=== PATIENT | male | born 1960 | race Caucasian/White ===

== ENCOUNTER → 2018-06-06 | Outpatient (CLI) | payer OTHER ==
[~2018-06-06] VITALS: Ht 152.4 cm; Wt 68.0 kg
[~2018-06-06] MED LIST: ALLOPURINOL 10100 M1 PO; AMPHETAMINE SAL30 MG PO; ATENOLOL 50MG T50 MG PO; COLESTID1 GM PO; DIAZEPAM 10 MG10 M2 PO; LISINOPRIL10 MG PO; LOVAZA1000 MG PO; METFORMIN HCL500 MG PO; NEURONTIN 300300 M1 PO; NEURONTIN600 MG PO; OXYCODONE-ACET1 EAC2 PO; PERCOCET 10-321 EACH PO; SYNTHROID150 MCG PO; XANAX1 MG PO
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
[2018-06-06 13:23] VITALS: BP 163/104
--- NOTE | 2018-06-06 13:27 | NUR ---
Pain Clinic Assessment: 1. History of Osteoarthritis: Not Applicable History of Rheumatoid Arthritis: Not Applicable 2. Height: 5 ft. 9 in. 152.4 cm. Weight: 150.0 lb. oz. 68.040 kg. Patient's BMI: 29.3 3. Vital Signs: BP: 163/104 Pulse: 104 Resp: 16 Temp: 02 Sat: 98 ECG Mon: 4. Pain Intensity: 6 5. Fall Risk: Dizziness: N Needs help standing or walking: N Fallen in the last 3 months: N Fall risk comments: 6. Patient on Blood Thinner: None 7. History of Hypertension: Y 8. Opioid Therapy greater than 6 weeks: Y Opiate Contract Signed: 9. Risk Assessment Tool Provided: 10. Functional Assessment Tool: 91/712 11. Recreational Drug Use: Never Drug Type: Tobacco Use: Never Smoker Tobacco Type: Amount or Packs/day: How Many Years: Alcohol Use: No Frequency: Quant:
== END ==
LOC: PAIN 07:10
DX: G89.29 Other chronic pain (principal); M79.662 Pain in left lower leg; I10 Essential (primary) hypertension; Z89.612 Acquired absence of left leg above knee; Z88.2 Allergy status to sulfonamides; Z79.899 Other long term (current) drug therapy; Z79.891 Long term (current) use of opiate analgesic

== ENCOUNTER → 2018-07-10 | Outpatient (CLI) | payer OTHER ==
[~2018-07-10] VITALS: Ht 175.3 cm; Wt 68.9 kg
[2018-07-10 09:17] VITALS: BP 130/76
--- NOTE | 2018-07-10 09:34 | NUR ---
Pain Clinic Assessment: 1. History of Osteoarthritis: Not Applicable History of Rheumatoid Arthritis: Not Applicable 2. Height: 5 ft. 9 in. 175.3 cm. Weight: 152.0 lb. oz. 68.947 kg. Patient's BMI: 22.4 3. Vital Signs: BP: 130/76 Pulse: 93 Resp: 16 Temp: 02 Sat: 97 ECG Mon: 4. Pain Intensity: 5 5. Fall Risk: Dizziness: N Needs help standing or walking: Y Fallen in the last 3 months: N Fall risk comments: 6. Patient on Blood Thinner: None 7. History of Hypertension: Y 8. Opioid Therapy greater than 6 weeks: Y Opiate Contract Signed: 06/06/18 9. Risk Assessment Tool Provided: 3 LOW 10. Functional Assessment Tool: 11. Recreational Drug Use: Never Drug Type: Tobacco Use: Never Smoker Tobacco Type: Amount or Packs/day: How Many Years: Alcohol Use: No Frequency: Quant:
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
== END ==
LOC: PAIN 06:43
DX: Z76.0 Encounter for issue of repeat prescription (principal); T87.89 Other complications of amputation stump; G54.6 Phantom limb syndrome with pain; Z89.612 Acquired absence of left leg above knee; Z79.899 Other long term (current) drug therapy; Y83.8 Other surgical procedures as the cause of abnormal reaction of the patient, or of later complication, without mention of misadventure at the time of the procedure

== ENCOUNTER → 2018-08-08 | Outpatient (CLI) | payer OTHER, MEDICARE ==
[~2018-08-08] VITALS: Ht 175.3 cm; Wt 69.4 kg
[~2018-08-08] MED LIST changes: +WELLBUTRIN XL300 MG PO
[2018-08-08 09:35] VITALS: BP 145/104
--- NOTE | 2018-08-08 10:21 | NUR ---
Pain Clinic Assessment: 1. History of Osteoarthritis: Not Applicable History of Rheumatoid Arthritis: Not Applicable 2. Height: 5 ft. 9 in. 175.3 cm. Weight: 153.0 lb. oz. 69.400 kg. Patient's BMI: 22.6 3. Vital Signs: BP: 145/104 Pulse: 96 Resp: 18 Temp: 02 Sat: 97 ECG Mon: 4. Pain Intensity: 6 1/2-7 5. Fall Risk: Dizziness: N Needs help standing or walking: Y Fallen in the last 3 months: Y Fall risk comments: 6. Patient on Blood Thinner: None 7. History of Hypertension: Y 8. Opioid Therapy greater than 6 weeks: Y Opiate Contract Signed: 06/06/18 9. Risk Assessment Tool Provided: 3 LOW 10. Functional Assessment Tool: 11. Recreational Drug Use: Never Drug Type: Tobacco Use: Never Smoker Tobacco Type: Amount or Packs/day: How Many Years: Alcohol Use: No Frequency: Quant:
--- NOTE | 2018-08-09 08:02 | HPC ---
[facility] [place] [address] PAIN MANAGEMENT CONSULTATION Name: GUNNARTANISHA Room #: REG CL Carmen.#: [id number] Admission: 08/08/18 ������������������ Attend Phys: rGace Hines Discharge: ������������������ Date of : 56 Report #: [id number] THIS REPORT FOR: //name// CC: Grace Forbes DATE OF SERVICE: 08/08/2018 CHIEF COMPLAINT: Chronic intractable left lower extremity pain related to lkewq-czy-eusm amputation and phantom limb pain. HISTORY OF PRESENT ILLNESS: This is a pleasant 58-year-old gentleman who returns to the pain clinic for refill of his medications. He is more upbeat today telling me that he has a plan in place. He is going to start going to [facility], which Dr. Naheed Larry had recommended him go. He tells me they have lots of classes that he is interested in doing such as meditation and yoga and next week he is going to start his physical therapy to build up some of his strength. He tells me that he is going also to start a master's program in February, so he has goals in place to try and be better and stronger and decrease medicines before that time. He has decided that he will hold off on his spinal cord stimulator trial for now.He want to see if he is able to feel better through the techniques we discussed above and also trying to decrease his pain pills. He thinks that he should request 120 of his pain pills today, a decrease from his 180. The patient tells me his pain is a 6.5-7, mostly in his left stump and left buttock and the back of his left thigh. It is electrical in nature, sharp, stabbing and cramping feeling. It is worse with movement and wearing his prosthesis but medication and relaxation are helpful. ALLERGIES: SULFA. CURRENT LIST OF MEDICATIONS: Bupropion 300 mg daily, oxycodone 10/325 p.r.n., metformin 500 mg b.i.d., amphetamine salts 30 mg daily, Neurontin 1200 mg 3 times a day, Valium 5 mg b.i.d., allopurinol p.r.n., Xanax 0.5 mg p.r.n., atenolol 50 mg daily, lisinopril 10 mg daily, colestipol 1 gram 4 times a day and Synthroid 150 mcg a day. PQRS: The patient has multiple joint arthritis. Denies any rheumatoid arthritis. Height is 5 feet 9 inches, weight is 153, BMI is 22. Vital signs: Blood pressure 145/104, pulse is 96, respirations 18, oxygen sat is 97%. Pain score is 6.5-7. Fall risk, denies dizziness. Does need help walking. Does use a wheelchair today. He has fallen in the last 3 months. The patient is not on any blood thinners. He does take medicine for hypertension. Opioid therapy is greater than 6 weeks; therefore, an opioid signed contract is on the chart. His [address] [address] PAIN MANAGEMENT CONSULTATION Name: GUNNARTANISHA Room #: REG BARAK Elizabeth#: [id number] Admission: 08/08/18 ������������������ Attend Phys: Grace Hines Discharge: ������������������ Date of : 56 Report #: [id number] risk assessment tool is low. His functional assessment is 40/70. Recreational drug use, he denies. He is not a smoker and does not drink alcohol. We did check the prescription monitoring system. The patient is filling appropriately for his medications. We will check a drug screen on this patient at the next visit. PHYSICAL EXAMINATION GENERAL: This is a pleasant 58-year-old gentleman who appears his stated age. Placing his pain score today at 6.5-7. He is in a wheelchair today, more upbeat than last visit. HEENT: Normocephalic, atraumatic. Extraocular eye muscles are intact. Mucous membranes are moist. MUSCULOSKELETAL: Lower extremity reveals good strength in his right leg. He has a left balzz-llw-fmuj amputation, which is very sensitive to touch. Complaints of electrical sensation from his left buttock radiating down to his stump. IMPRESSION: 1. Chronic intractable left lower extremity pain with wockv-acj-xmxo amputation. 2. Phantom limb pain of the left leg. 3. Severe neuropathic stump pain. We reviewed the fact that opiate medications are being used to provide analgesia adequate to support activities of daily living, not attempting to achieve a specific pain score on the 0-10 Visual Analog Scale. The current opiate medications are providing sufficient analgesia to allow the patient to participate in activities of daily living. The patient is not exhibiting any aberrant behavior suggestive of drug diversion. The patient is not having any adverse reactions to medications. The patient is not suffering from daytime somnolence or mental acuity changes. The patient is managing opiate-induced constipation with appropriate xhcc-oef-zxvltor agents and dietary considerations. The patient was counseled on concern for caution with operating a motor vehicle while using opiate medications. A physical exam was performed and the patient's functional status was evaluated. All patients with back pain were advised against the bed rest greater than 4 days and were advised to return to normal activities. Pain score assessment was noted and the treatment plan was reviewed with the patient. All current medications, both prescribed and OTC were reviewed and reconciled on the electronic medical record. Tobacco screening was accomplished and smoking cessation was advised when indicated. BMI was noted and diet/exercise modification was recommended for all patients following outside normal parameters. [facility] [address] [place] [address] PAIN MANAGEMENT CONSULTATION Name: TANISHA MAHER Room #: REG CL M.R.#: [id number] Admission: 08/08/18 ������������������ Attend Phys: Grace Hines Discharge: ������������������ Date of : 56 Report #: [id number] I reviewed with the patient today their responsibilities to safeguard prescription medications, reviewed their responsibility to utilize medications only as prescribed by the physician. They are to seek and receive pain medications only from 1 physician group ( [facility]). They are to use 1 pharmacy and keep the clinic informed if they change pharmacies. Their responsibilities include making followup visits in a timely fashion and to avoid abrupt discontinuation of medication usage. Their responsibilities further include bringing their medications (bottles from the pharmacy with residual pills) to the visit for possible confirmation of pill counts and the patient understands it is their responsibility to submit to random drug screens to ensure both that the medications prescribed are present, and that no other controlled substances are present. All prescriptions provided today were generated electronically. PLAN: 1. We discussed treatment options with the patient today. The patient is going to start going to [facility] and interested in their meditation and yoga classes. We did give him the brochure of all the classes for the next 2 months. 2. The patient is going to start physical therapy trying to build his upper extremity strength, getting ready to start his master's classes in February and he knows he needs to build his endurance. 3. The patient is requesting to decrease his Percocet use. He thinks that he needs to eventually wean off these medicines. His current allotment is 180. The patient requested 120 and then thought he could go to 60 the next month. We did talk about dependence and addiction of opioids. I believe he does have dependence on these and we explained decreasing slowly to prevent withdrawal symptoms. The patient was unaware that he would experience those and realizes that he does need to go slowly. We talked about decreasing 1 pill a month or even half a pill at a time. Script was given today for oxycodone 10/325 one p.o. q. 4 hours, #180 for 1 month. We will see how he is in 1 month's time period since he is starting physical therapy, which may increase some of his pain, but if he is able to decrease slightly, we will decrease his prescription at the next visit. According to the prescription monitoring system and the CDC guidelines, his morphine mEq is 90 MME per day. The patient denies problems with constipation or overmedication feeling. 4. The patient tells me that he wishes to put his spinal cord stimulator on hold right now to see how these other therapies are working. 5. The patient is seen today with Dr. Monroy who was present for part of this discussion and collaborated care. ��������������������������������������������� <ELECTRONICALLY SIGNED> ���������������������������������������� By: Grace Hines ��������������������������������������������� 08/09/18 [id number] Grace Hines /rogerio
== END ==
LOC: PAIN 06:54
DX: M25.562 Pain in left knee (principal); G89.29 Other chronic pain; M79.605 Pain in left leg

== ENCOUNTER → 2018-09-06 | Outpatient (CLI) | payer OTHER, MEDICARE ==
[~2018-09-06] VITALS: Ht 172.7 cm; Wt 65.8 kg
[2018-09-06 08:17] VITALS: BP 124/82
--- NOTE | 2018-09-06 08:22 | NUR ---
Pain Clinic Assessment: 1. History of Osteoarthritis: Not Applicable History of Rheumatoid Arthritis: Not Applicable 2. Height: 5 ft. 8 in. 172.7 cm. Weight: 145.0 lb. oz. 65.772 kg. Patient's BMI: 22.1 3. Vital Signs: BP: 124/82 Pulse: 59 Resp: 16 Temp: 02 Sat: 98 ECG Mon: 4. Pain Intensity: 6-7 5. Fall Risk: Dizziness: N Needs help standing or walking: N Fallen in the last 3 months: N Fall risk comments: 6. Patient on Blood Thinner: None 7. History of Hypertension: Y 8. Opioid Therapy greater than 6 weeks: Y Opiate Contract Signed: 06/06/18 9. Risk Assessment Tool Provided: 3 LOW 10. Functional Assessment Tool: 11. Recreational Drug Use: Never Drug Type: Tobacco Use: Never Smoker Tobacco Type: Amount or Packs/day: How Many Years: Alcohol Use: No Frequency: Quant:
--- NOTE | 2018-09-10 07:46 | HPC ---
[facility] [address] [place] [address] PAIN MANAGEMENT CONSULTATION Name: TANISHA MAHER Room #: REG BARAK Elizabeth#: [id number] Admission: 09/06/18 ������������������ Attend Phys: Garce Hines Discharge: ������������������ Date of : 56 Report #: [id number] THIS REPORT FOR: //name// CC: Grace Diaz DATE OF SERVICE: 09/06/2018 CHIEF COMPLAINT: Chronic intractable left lower extremity pain related to aevon-rqf-oyrx amputation and phantom limb pain. HISTORY OF PRESENT ILLNESS: This is a very pleasant 58-year-old gentleman who returns to the clinic today for refill of his medications that he uses to treat his chronic intractable left lower extremity pain. He reports that his pain score is a 6-7. He has been able to decrease his medications to #5 pills a day. He tells me that he did experience some sweating and irritability, almost flu-like symptoms when he was trying to go down. He was surprised that he had felt that way since he thought he could decrease quicker on his medications than he has been able to, which we did explain to him at his last visit. The patient tells me he realizes now that he will be needing to taper off his medications more slowly and understands that the body still needs some medications to help control his pain. The patient tells me he did go to [facility] and started weekly meditation sessions there and is getting ready to start some other classes there as well. His physical therapy is on hold currently because he was not able to tolerate 3 times a week when they are trying to get his new prosthetic limb and able to have him walk again, so he is going to his orthopedic doctor to get a new order for physical therapy 2 times a week. The patient tells me his pain is worse with movement wearing his prosthesis. The medications and relaxing techniques are helpful and it is a constant, burning, aching pain of 7/10 today. ALLERGIES: SULFA. CURRENT MEDICATIONS: Oxycodone 10/325 p.r.n., Wellbutrin 300 mg daily, Lovaza, Glucophage, amphetamine salts, Neurontin, diazepam, allopurinol, Xanax, atenolol, lisinopril, Colestid and Synthroid. PQRS: 1. The patient has multiple joint arthritis. He denies any rheumatoid arthritis. 2. Height is 5 feet 8 inches, weight is 145, BMI is 22. 3. Vital signs: Blood pressure 124/82, pulse is 59, respirations 16, oxygen sat 98%. [place] [address] PAIN MANAGEMENT CONSULTATION Name: TANISHA MAHER Room #: REG BARAK Elizabeth#: [id number] Admission: 09/06/18 ������������������ Attend Phys: Grace Hines Discharge: ������������������ Date of : 56 Report #: [id number] 4. Pain score is 6-7. 5. Denies dizziness, does not need help walking or standing, has not fallen in the last 3 months. 6. The patient is not on any blood thinners. He does take medication for hypertension. 7. Opioid therapy is greater than 6 weeks; therefore, an opioid signed contract is on the chart. Risk assessment tool is low. Functional assessment is 48/70. 8. Recreational drug use, he denies. He is not a smoker and does not drink alcohol. According to the prescription monitoring system, the patient is filling appropriately for his medications and is due for those today. We will check a drug screen on the patient in the next visit. PHYSICAL EXAMINATION GENERAL: This is a pleasant 58-year-old gentleman, rating his pain score today at 6-7/10. He is alert and orientated. He is in a wheelchair today. HEENT: Normocephalic, atraumatic. Extraocular eye muscles are intact. Mucous membranes are moist. MUSCULOSKELETAL: Lower extremities reveal good strength in his right leg. He has peyhl-mes-bjyv amputation in the left leg. He is not wearing his prosthetic today. IMPRESSION: 1. Chronic intractable left lower extremity pain with aormc-hyh-nhdt amputation. 2. Phantom limb pain of the left leg. 3. Severe neuropathic stump pain. We reviewed the fact that opiate medications are being used to provide analgesia adequate to support activities of daily living, not attempting to achieve a specific pain score on the 0-10 Visual Analog Scale. The current opiate medications are providing sufficient analgesia to allow the patient to participate in activities of daily living. The patient is not exhibiting any aberrant behavior suggestive of drug diversion. The patient is not having any adverse reactions to medications. The patient is not suffering from daytime somnolence or mental acuity changes. The patient is managing opiate-induced constipation with appropriate gzuv-xqu-inmwfyl agents and dietary considerations. The patient was counseled on concern for caution with operating a motor vehicle while using opiate medications. A physical exam was performed and the patient's functional status was evaluated. All patients with back pain were advised against the bed rest greater than 4 days and were advised to return to normal activities. Pain score assessment was noted and the treatment plan was reviewed with the patient. All current medications, both prescribed and OTC were reviewed and reconciled on the [address] [address] PAIN MANAGEMENT CONSULTATION Name: TANISHA MAHER Room #: REG BARAK Elizabeth#: [id number] Admission: 09/06/18 ������������������ Attend Phys: Grace BROWN Flora Discharge: ������������������ Date of : 56 Report #: [id number] electronic medical record. Tobacco screening was accomplished and smoking cessation was advised when indicated. BMI was noted and diet/exercise modification was recommended for all patients following outside normal parameters. I reviewed with the patient today their responsibilities to safeguard prescription medications, reviewed their responsibility to utilize medications only as prescribed by the physician. They are to seek and receive pain medications only from 1 physician group ( [facility]). They are to use 1 pharmacy and keep the clinic informed if they change pharmacies. Their responsibilities include making followup visits in a timely fashion and to avoid abrupt discontinuation of medication usage. Their responsibilities further include bringing their medications (bottles from the pharmacy with residual pills) to the visit for possible confirmation of pill counts and the patient understands it is their responsibility to submit to random drug screens to ensure both that the medications prescribed are present, and that no other controlled substances are present. All prescriptions provided today were generated electronically. PLAN: 1. We discussed treatment options again today. The patient understands that he needs to decrease his medications more slowly than he thought; therefore, he is requesting 5 pills a day, which is a decrease from his 6 that he was taking last month. This will place him at 75 morphine milligram equivalents. I explained to the patient that we may need to keep him at this 150 for a couple of months while his body adjusts to this lower medication. He verbalizes understanding. He will come back in a month and we will see how he is doing. If need to, we will decrease him to 120 or keep him at 150 for another month. I did explain to him that he may always require some medications, but hopefully at a lower dose. He verbalizes understanding. 2. The patient is attending [facility] classes and is looking forward to attending some more starting in September and October. 3. The patient denies any constipation or overmedication from his medications. 4. The patient made an appointment for 1 month. 5. The patient is seen in collaboration today with Dr. Marcelo Alba. ��������������������������������������������� <ELECTRONICALLY SIGNED> ���������������������������������������� By: Grace Hines ��������������������������������������������� 09/10/18 0746 [id number] Grace Hines /nt
== END ==
LOC: PAIN 06:39
DX: M25.562 Pain in left knee (principal); M79.605 Pain in left leg

== ENCOUNTER → 2018-09-30 | Outpatient (CLI) | payer OTHER, MEDICARE ==
[~2018-09-30] VITALS: Ht 172.7 cm; Wt 71.8 kg
[2018-09-30 13:04] VITALS: BP 162/87
--- NOTE | 2018-09-30 13:25 | NUR ---
Pain Clinic Assessment: 1. History of Osteoarthritis: Not Applicable History of Rheumatoid Arthritis: Not Applicable 2. Height: 5 ft. 8 in. 172.7 cm. Weight: 158.4 lb. oz. 71.850 kg. Patient's BMI: 24.1 3. Vital Signs: BP: 162/87 Pulse: 84 Resp: 16 Temp: 02 Sat: 97 ECG Mon: 4. Pain Intensity: 6 5. Fall Risk: Dizziness: N Needs help standing or walking: Y Fallen in the last 3 months: N Fall risk comments: 6. Patient on Blood Thinner: None 7. History of Hypertension: Y 8. Opioid Therapy greater than 6 weeks: Y Opiate Contract Signed: 06/06/18 9. Risk Assessment Tool Provided: 3 LOW 10. Functional Assessment Tool: 11. Recreational Drug Use: Never Drug Type: Tobacco Use: Never Smoker Tobacco Type: Amount or Packs/day: How Many Years: Alcohol Use: No Frequency: Quant:
--- NOTE | 2018-10-01 08:37 | HPC ---
[facility] [address] [place] [address] PAIN MANAGEMENT CONSULTATION Name: TANISHA MAHER Room #: REG [facility] Glenn#: [id number] Admission: 09/30/18 Attend Phys: Grace Hines Discharge: Date of : 56 Report #: [id number] THIS REPORT FOR: //name// CC: Grace Valdes DATE OF SERVICE: 09/30/2018 CHIEF COMPLAINT: Chronic intractable left lower extremity pain related to ubfsx-zur-txqr amputation and phantom limb pain. HISTORY OF PRESENT ILLNESS: This is a pleasant 58-year-old gentleman who returns to the pain clinic today for refill of his medications. He tells me that it had been a rough month, he was trying to decrease his oxycodone and he was doing quite well. Then, he had a bout of gout flare up. He tells me he was in bed for 4 days with that before the symptoms slowly started to resolve and his pain was quite bad during that time, but mostly in his left foot. He explains to me that he did not run out of his oxycodone, though he was tempted to take more pills, he did not. He wishes to continue on his current dose of 5 pills a day for the next month and then tried to taper to 120 tablets a month at his next visit. The patient rates his pain at a 6/10 today, again mostly in his left stump, left buttock. It is a constant, burning, aching pain, electrical worse with movement and wearing his prosthesis. He has not started his physical therapy, though he is going by there again today. This is the same situation as last month, he had not set up a time for his physical therapy yet. He denies any problems with constipation or daytime sleepiness from his medications. ALLERGIES: SULFA. CURRENT LIST OF MEDICINES: Oxycodone 10/325 up to 5 times a day, Wellbutrin 300 mg, Lovaza, metformin 500 mg, amphetamine salts 30 mg, gabapentin 1200 mg 3 times a day, diazepam 5 mg b.i.d., allopurinol 100 mg, Xanax 1 mg p.r.n., atenolol 50 mg, lisinopril 10 mg, Colestid and Synthroid 150 mcg. PQRS: 1. He has multiple joint arthritis and denies any rheumatoid arthritis. 2. Height is 5 feet 8 inches, weight is 158, BMI is 24. 3. Vital signs 162/87, pulse is 84, respirations 16, oxygen sat is 97. 4. Pain score 6/10. 5. Denies dizziness, does need help walking and standing. He is in a wheelchair, is not wearing his prosthesis today. He has not fallen in the last 3 months. 6. The patient is not on any blood thinners. He does take medicine for hypertension, which is elevated again today. [address] [address] PAIN MANAGEMENT CONSULTATION Name: GUNNARTANISHA Newman Room #: [id number] Admission: 09/30/18 Attend Phys: Grace Hines Discharge: Date of : 56 Report #: [id number] 7. Opiate therapy is greater than 6 weeks; therefore, an opioid signed contract is on the chart. 8. His risk assessment is low. Functional assessment is 40/70. 9. Recreational drug use, he denies. He is not a smoker and does not drink alcohol. According to the prescription monitoring system, the patient is due for his medications in a few days. We will check a random drug screen on the patient as well. PHYSICAL EXAMINATION: GENERAL: This is alert and orientated 58-year-old gentleman who appears his stated age. He is in a wheelchair today, rating his pain score at 6/10. HEENT: Normocephalic, atraumatic. Extraocular eye muscles are intact. Mucous membranes are moist. MUSCULOSKELETAL: He has an hrsya-ibn-ilwy amputation of the left leg. He is not wearing his prosthetic device today. He is in a wheelchair. His lower extremities revealed good strength in his right leg. IMPRESSION: 1. Chronic intractable left lower extremity pain with tabaz-xlx-ysps amputation. 2. Phantom limb pain of the left leg. 3. Severe neuropathic stump pain. 4. Complex medical management under terms of written opioid agreement. We reviewed the fact that opiate medications are being used to provide analgesia adequate to support activities of daily living, not attempting to achieve a specific pain score on the 0-10 Visual Analog Scale. The current opiate medications are providing sufficient analgesia to allow the patient to participate in activities of daily living. The patient is not exhibiting any aberrant behavior suggestive of drug diversion. The patient is not having any adverse reactions to medications. The patient is not suffering from daytime somnolence or mental acuity changes. The patient is managing opiate-induced constipation with appropriate vetr-cnh-dsfagoq agents and dietary considerations. The patient was counseled on concern for caution with operating a motor vehicle while using opiate medications. A physical exam was performed and the patient's functional status was evaluated. All patients with back pain were advised against the bed rest greater than 4 days and were advised to return to normal activities. Pain score assessment was noted and the treatment plan was reviewed with the patient. All current medications, both prescribed and OTC were reviewed and reconciled on the electronic medical record. Tobacco screening was accomplished and smoking cessation was advised when indicated. BMI was noted and diet/exercise modification was recommended for all patients following outside normal [facility] [address] [address] PAIN MANAGEMENT CONSULTATION Name: TANISHA MAHER Room #: REG CL M..#: [id number] Admission: 09/30/18 Attend Phys: Grace Hines Discharge: Date of : 56 Report #: [id number] parameters. I reviewed with the patient today their responsibilities to safeguard prescription medications, reviewed their responsibility to utilize medications only as prescribed by the physician. They are to seek and receive pain medications only from 1 physician group ( [facility]). They are to use 1 pharmacy and keep the clinic informed if they change pharmacies. Their responsibilities include making followup visits in a timely fashion and to avoid abrupt discontinuation of medication usage. Their responsibilities further include bringing their medications (bottles from the pharmacy with residual pills) to the visit for possible confirmation of pill counts and the patient understands it is their responsibility to submit to random drug screens to ensure both that the medications prescribed are present, and that no other controlled substances are present. All prescriptions provided today were generated electronically. PLAN: 1. We discussed treatment options with the patient today. The patient still would like to continue to decrease his medication, though he is wanting to wait an additional month. His current morphine mEq is 75 per day. The patient is seen on a monthly basis, so we will continue his oxycodone 10/325, #150 for one additional month and next month, we will try to taper him to 120 per his request. 2. We did talk about goals and increasing his activity regarding starting his physical therapy and his goal for starting school in February, I believe it is good for chronic pain patients to have goals to not be in the house and have the pain consume them. The patient is trying to be active in all of these ways and he explains to us that he is feeling better about himself because of it. 3. We did collect a urine specimen for random drug screen today. 4. Dr. Davon Monroy did see the patient as well today and collaborated care. The patient will follow up in 1 month and call for an appointment. <ELECTRONICALLY SIGNED> By: Grace Hines 10/01/18 0837 [id number] Grace Hines /nt
== END ==
LOC: PAIN 06:59
DX: G89.29 Other chronic pain (principal); M79.605 Pain in left leg; M25.562 Pain in left knee; Z79.891 Long term (current) use of opiate analgesic

== ENCOUNTER → 2018-10-31 | Outpatient (CLI) | payer OTHER, MEDICARE ==
[~2018-10-31] VITALS: Ht 172.7 cm; Wt 65.8 kg
[~2018-10-31] MED LIST changes: +ZANAFLEX4 MG PO
[2018-10-31 10:10] VITALS: BP 132/77
--- NOTE | 2018-10-31 10:40 | NUR ---
Pain Clinic Assessment: 1. History of Osteoarthritis: Not Applicable History of Rheumatoid Arthritis: Not Applicable 2. Height: 5 ft. 8 in. 172.7 cm. Weight: 145.0 lb. oz. 65.772 kg. Patient's BMI: 22.1 3. Vital Signs: BP: 132/77 Pulse: 82 Resp: 16 Temp: 02 Sat: 98 ECG Mon: 4. Pain Intensity: 8 5. Fall Risk: Dizziness: Y Needs help standing or walking: Y Fallen in the last 3 months: N Fall risk comments: 6. Patient on Blood Thinner: None 7. History of Hypertension: Y 8. Opioid Therapy greater than 6 weeks: Y Opiate Contract Signed: 06/06/18 9. Risk Assessment Tool Provided: 3 LOW 10. Functional Assessment Tool: 11. Recreational Drug Use: Never Drug Type: Tobacco Use: Never Smoker Tobacco Type: Amount or Packs/day: How Many Years: Alcohol Use: No Frequency: Quant:
--- NOTE | 2018-11-05 09:15 | HPC ---
[facility] [address] [place] [address] PAIN MANAGEMENT CONSULTATION Name: TANISHA MAHER Room #: REG [facility] Glenn#: [id number] Admission: 10/31/18 ������������������ Attend Phys: Grace Hines Discharge: ������������������ Date of : 56 Report #: [id number] THIS REPORT FOR: //name// CC: Grace Mendez MD DATE OF SERVICE: 10/31/2018 CHIEF COMPLAINT: Chronic intractable left lower extremity pain related to gzjay-lnv-evng amputation and phantom limb pain. HISTORY OF PRESENT ILLNESS: This is a pleasant 58-year-old gentleman who returns to the pain clinic for a refill of his medications. Today, he is rating his pain score at 8/10. He tells me that he has been out of his medications for 5 days because he was having increased pain since he has started physical therapy. He now has some back pain as well as left sciatica pain that is radiating down his left leg to his stump, occasional pain in his right lower leg. He is also complaining of some neck pain. It is a burning, sharp, stabbing pain, electrical in nature "resonating feeling" an 8/10. He said movement makes it worse, wearing his prosthesis which he has not ever worn since he has been seeing me and activity. He tells me he did have some sweating episodes, but otherwise did not experience any withdrawal since out of his medication for 5 days. The patient tells me he does have scripts for a cervical, thoracic and lumbar MRI that he is going to schedule at [facility] and then he is going to see Kelsie, the nurse practitioner, at Dr. Salazar's office on 11/19 to determine if he needs further treatments. ALLERGIES: SULFA. CURRENT LIST OF MEDICATIONS: Oxycodone 10/325, Wellbutrin 300 mg daily, Lovaza 400 mg daily, metformin 500 mg b.i.d., amphetamine 300 mg 2 daily, gabapentin 1200 mg 3 times a day, diazepam p.r.n., allopurinol 100 mg daily, Xanax 2 mg as needed, atenolol 50 mg daily, lisinopril 10 mg daily, Colestid 1 gram 4 times a day, Lodine and levothyroxine 150 mcg daily. PQRS: 1. He has multiple joint arthritis and denies any rheumatoid arthritis. 2. Height is 5 feet 8 inches, weight is 145, BMI is 22. 3. Vital signs 132/77, pulses 82, respirations 16, oxygen sat 98. 4. Pain score is 8/10. 5. Complains of dizziness, does need help walking. He is in a wheelchair today, has not fallen in the last [address] [address] PAIN MANAGEMENT CONSULTATION Name: TANISHA MAHER Room #: REG [facility] Glenn#: [id number] Admission: 10/31/18 ������������������ Attend Phys: Grace Hines Discharge: ������������������ Date of : 56 Report #: [id number] 6. The patient is not on any blood thinners, but does have medicine for hypertension. 7. Opiate therapy is greater than 6 weeks; therefore, an opioid signed contract is on the chart. Risk assessment tool is low. Functional assessment is 48/70. 8. Recreational drug use, he denies. He is not a smoker and does not drink alcohol. According to the prescription monitoring system, the patient is here filling appropriately for his medications. According to his last drug screen, there was no oxycodone in his system, though he tells us that he was out for a couple of days prior to that appointment. The rest of his medications were appropriate for his screen. PHYSICAL EXAMINATION: GENERAL: This is alert and orientated 58-year-old somewhat depressed gentleman, in fact tearful throughout some of her visit. He is in a wheelchair, rating his pain score at 8/10 today. HEENT: Normocephalic, atraumatic. Extraocular eye muscles are intact. Mucous membranes are moist. MUSCULOSKELETAL: He is in a wheelchair today, not wearing his prosthetic device on his left leg, which is an gzunc-bia-ltqn amputee. Complains of pain in the lumbar spine, radiating into the outer aspect of his left buttock into his hip and leg following the L4-L5 and L5-S1 dermatomal distribution. Occasional slight pain in the right foot. His right lower extremity reveals good strength. IMPRESSION: 1. Chronic intractable left lower extremity pain with cizrv-swn-fxdz amputation. 2. Lumbar radiculopathy following the L4-L5 and L5-S1 dermatomal distribution. 3. Phantom limb pain in the left leg. 4. Severe neuropathic stump pain. 5. Complex medical management under terms of written opioid agreement. 6. Situational depression. We reviewed the fact that opiate medications are being used to provide analgesia adequate to support activities of daily living, not attempting to achieve a specific pain score on the 0-10 Visual Analog Scale. The current opiate medications are providing sufficient analgesia to allow the patient to participate in activities of daily living. The patient is not exhibiting any aberrant behavior suggestive of drug diversion. The patient is not having any adverse reactions to medications. The patient is not suffering from daytime somnolence or mental acuity changes. The patient is managing opiate-induced constipation with appropriate gnza-etj-sahwgjq agents and dietary considerations. The patient was counseled on concern for caution with operating a motor vehicle while using opiate medications. [facility] [address] [place] [address] PAIN MANAGEMENT CONSULTATION Name: TANISHA MAHER [id number] Admission: 10/31/18 ������������������ Attend Phys: Grace Hines Discharge: ������������������ Date of : 56 Report #: [id number] A physical exam was performed and the patient's functional status was evaluated. All patients with back pain were advised against the bed rest greater than 4 days and were advised to return to normal activities. Pain score assessment was noted and the treatment plan was reviewed with the patient. All current medications, both prescribed and OTC were reviewed and reconciled on the electronic medical record. Tobacco screening was accomplished and smoking cessation was advised when indicated. BMI was noted and diet/exercise modification was recommended for all patients following outside normal parameters. I reviewed with the patient today their responsibilities to safeguard prescription medications, reviewed their responsibility to utilize medications only as prescribed by the physician. They are to seek and receive pain medications only from 1 physician group ([facility]). They are to use 1 pharmacy and keep the clinic informed if they change pharmacies. Their responsibilities include making followup visits in a timely fashion and to avoid abrupt discontinuation of medication usage. Their responsibilities further include bringing their medications (bottles from the pharmacy with residual pills) to the visit for possible confirmation of pill counts and the patient understands it is their responsibility to submit to random drug screens to ensure both that the medications prescribed are present, and that no other controlled substances are present. All prescriptions provided today were generated electronically. PLAN: 1. We discussed treatment options with the patient today. The patient tells me that he has run out of his medications because he was in significantly more pain since starting his physical therapy. He requested an injection type medication to have at home in case of an emergency if he is having severe pain bouts. I explained to the patient that we allow him his oxycodone 5 tablets of 10/325 a day. He is encouraged to use those medications when he has significant pain. We also talked about adjunct medications. He does take gabapentin and the anti-inflammatory Lodine and an occasional muscle relaxant of diazepam. I did talk to him about altering his muscle relaxant to tizanidine 4 mg, the patient may take a half to one tablet or 1-2 tablets as needed b.i.d. for increased muscle spasms in his lumbar spine. 2. I encouraged the patient to set up his MRIs as soon as he is able and then return to our clinic to see Dr. Davon Monroy who could possibly give him a lumbar epidural steroid injection or transforaminal steroid injection or possibly a sacroiliac joint depending on where his pain is located at that time since he has been having pain in all these various areas that these injections would be beneficial. The patient has had injections a long time ago and he is willing to try this. He will schedule his MRI once he leaves here today and then call for an appointment with Dr. Davon Monroy. 3. The patient did request an increase in his opioids. I explained to the patient that we are trying to taper his medications, not increase them. We are [address] [address] PAIN MANAGEMENT CONSULTATION Name: GUNNARTANISHA Newman Room #: REG [facility] Elizabeth#: [id number] Admission: 10/31/18 ������������������ Attend Phys: Grace Hines Discharge: ������������������ Date of : 56 Report #: [id number] offering him injections as well as muscle relaxants. I encouraged him to try those first and continue with his 5 oxycodone 10/325 per day. This does place him at 75 morphine milliequivalents according to the CDC guidelines. 4. The patient was also given a list of amputee support groups. He has been attending [facility] for meditation and finding those scripts very beneficial, but they do not offer any amputee support groups. 5. The patient and discharged to home. The patient is seen today in collaboration with Dr. Davon Monroy. ��������������������������������������������� <ELECTRONICALLY SIGNED> ���������������������������������������� By: Grace Hines ��������������������������������������������� 11/05/18 0915 [id number] Grace Hines /rogerio
== END ==
LOC: PAIN 06:47
DX: M79.662 Pain in left lower leg (principal); M54.16 Radiculopathy, lumbar region; Z88.2 Allergy status to sulfonamides; Z79.899 Other long term (current) drug therapy; Z79.84 Long term (current) use of oral hypoglycemic drugs; Z79.891 Long term (current) use of opiate analgesic

== ENCOUNTER → 2018-12-02 | Outpatient (CLI) | payer OTHER, MEDICARE ==
[~2018-12-02] VITALS: Ht 172.7 cm; Wt 74.1 kg
[~2018-12-02] MED LIST changes: -LISINOPRIL10 MG PO; +LISINOPRIL20 MG PO; +ZANAFLEX4 M2 PO
[2018-12-02 09:19] VITALS: BP 187/113
--- NOTE | 2018-12-02 09:48 | NUR ---
Pain Clinic Assessment: 1. History of Osteoarthritis: NECK History of Rheumatoid Arthritis: Not Applicable 2. Height: 5 ft. 8 in. 172.7 cm. Weight: 163.4 lb. oz. 74.118 kg. Patient's BMI: 24.9 3. Vital Signs: BP: 187/113 Pulse: 82 Resp: 14 Temp: 02 Sat: 100 ECG Mon: 4. Pain Intensity: 7 5. Fall Risk: Dizziness: N Needs help standing or walking: Y Fallen in the last 3 months: Y Fall risk comments: 6. Patient on Blood Thinner: None 7. History of Hypertension: Y 8. Opioid Therapy greater than 6 weeks: Y Opiate Contract Signed: 06/06/18 9. Risk Assessment Tool Provided: 3 LOW 10. Functional Assessment Tool: 11. Recreational Drug Use: Never Drug Type: Tobacco Use: Never Smoker Tobacco Type: Amount or Packs/day: How Many Years: Alcohol Use: No Frequency: Quant:
--- NOTE | 2018-12-02 15:02 | HPC ---
[facility] [place] [address] PAIN MANAGEMENT CONSULTATION Name: TANISHA MAHER Room #: REG Stephon Elizabeth#: [id number] Admission: 12/02/18 Attend Phys: Grace Hines Discharge: Date of : 56 Report #: [id number] THIS REPORT FOR: //name// CC: Grace ALTAMIRANO MD DATE OF SERVICE: 12/02/2018 CHIEF COMPLAINT: Chronic intractable left lower extremity pain related to cuesn-jco-edhp amputation and phantom limb pain. HISTORY OF PRESENT ILLNESS: This is a 58-year-old gentleman who returns to the pain clinic today for refill of his medications. He reports a pain score of 7/10. He is currently out of his medication today since he needed to move his appointment due to a last week. He reports his pain is mostly in his neck as well as his stump of his left leg. It is sharp, dull pressure as well as phantom limb pain. He feels that the medications are helpful when he is taking them as well as relaxation and massage, but his pain is exacerbated without his medications and stress. He denies any problems with constipation or daytime sleepiness. He feels that the tizanidine that we recently started him on was beneficial and helping some of his spasms in his neck and making him more relaxed. The patient has reported he has not seen Dr. Salazar. He does have an appointment now on 12/14/2018 to see a nurse practitioner. He has also not had his cervical, thoracic and lumbar MRIs performed for us to review at this visit. ALLERGIES: SULFA. CURRENT LIST OF MEDICATIONS: Tizanidine 4 mg p.r.n., oxycodone 10/325 five times a day, Wellbutrin 300 mg daily, Lovaza 4000 mg daily, Glucophage 500 mg b.i.d., amphetamine salts 30 mg daily, gabapentin 1200 mg t.i.d., Valium 5 mg p.r.n., allopurinol 100 mg p.r.n., atenolol 50 mg daily, lisinopril 10 mg daily, Colestid q.i.d. and Synthroid 150 mcg daily. PQRS: 1. He has multiple joint osteoarthritis. Denies any rheumatoid arthritis. 2. Height is 5 feet 8 inches, weight is 163, and BMI is 24. 3. Vital signs 187/113, pulse is 82, respirations 14, oxygen sat is 100. 4. Pain score 7/10. 5. Denies dizziness. Does need help walking and standing. Has fallen in the last 3 months. 6. The patient is not on any blood thinners, [place] [address] PAIN MANAGEMENT CONSULTATION Name: TANISHA MAHER Room #: REG BARAK Elizabeth#: [id number] Admission: 12/02/18 Attend Phys: Grace Hines Discharge: Date of : 56 Report #: [id number] hypertension. 7. Opioid therapy is greater than 6 weeks; therefore, an opioid signed contract is on the chart. His risk assessment tool is low. Functional assessment is 48/70. 8. Recreational drug use, he denies. He is not a smoker and does not drink alcohol. According to the prescription monitoring system, he is filling appropriately for his medications. There is a drug screen on the chart as well. PHYSICAL EXAMINATION: GENERAL: This is alert and orientated 58-year-old gentleman who appears slightly depressed. He is at a wheelchair, rating his pain score at 7/10 today. HEENT: Normocephalic, atraumatic. Extraocular eye muscles are intact. Mucous membranes are moist. MUSCULOSKELETAL: The patient is not wearing his prosthetic device on his left leg. He is in a wheelchair today. He complains of neck discomfort that radiates into his shoulders. He has tenderness on his left buttock that radiates into his left leg following the L4-L5 dermatomal distribution. IMPRESSION: 1. Chronic intractable left lower extremity pain with efzsj-bht-qxmg amputation. 2. Lumbar radiculopathy following the L4-L5 dermatomal distribution. 3. Phantom limb pain of the left leg. 4. Severe neuropathic stump pain. 5. Neck pain. 6. Situational depression. 7. Complex medical management under terms of written opioid agreement. We reviewed the fact that opiate medications are being used to provide analgesia adequate to support activities of daily living, not attempting to achieve a specific pain score on the 0-10 Visual Analog Scale. The current opiate medications are providing sufficient analgesia to allow the patient to participate in activities of daily living. The patient is not exhibiting any aberrant behavior suggestive of drug diversion. The patient is not having any adverse reactions to medications. The patient is not suffering from daytime somnolence or mental acuity changes. The patient is managing opiate-induced constipation with appropriate ftfw-hbq-rusnsar agents and dietary considerations. The patient was counseled on concern for caution with operating a motor vehicle while using opiate medications. A physical exam was performed and the patient's functional status was evaluated. All patients with back pain were advised against the bed rest greater than 4 days and were advised to return to normal activities. Pain score assessment was noted and the treatment plan was reviewed with the patient. All current [address] [address] PAIN MANAGEMENT CONSULTATION Name: TANISHA MAHER Room #: REG [facility]#: [id number] Admission: 12/02/18 Attend Phys: Grace Hines Discharge: Date of : 56 Report #: [id number] medications, both prescribed and OTC were reviewed and reconciled on the electronic medical record. Tobacco screening was accomplished and smoking cessation was advised when indicated. BMI was noted and diet/exercise modification was recommended for all patients following outside normal parameters. I reviewed with the patient today their responsibilities to safeguard prescription medications, reviewed their responsibility to utilize medications only as prescribed by the physician. They are to seek and receive pain medications only from 1 physician group ( [facility]). They are to use 1 pharmacy and keep the clinic informed if they change pharmacies. Their responsibilities include making followup visits in a timely fashion and to avoid abrupt discontinuation of medication usage. Their responsibilities further include bringing their medications (bottles from the pharmacy with residual pills) to the visit for possible confirmation of pill counts and the patient understands it is their responsibility to submit to random drug screens to ensure both that the medications prescribed are present, and that no other controlled substances are present. All prescriptions provided today were generated electronically. PLAN: 1. We discussed treatment options with the patient today. The patient has not fulfilled any of the directions we discussed last time as far as physical therapy and seeing Dr. Salazar and having his MRIs completed. The patient tells me that physical therapy made his neck pain worse and did have to stop that for now. He is scheduled for his MRIs this week and to see a nurse practitioner at Dr. Salazar's office on 12/14/2018. I encouraged the patient to follow up with all of these appointments before he sees us at the next visit and have his MRI reports with him, so we can go over those as well. 2. The patient finds that tizanidine beneficial in helping with some of his muscle relaxants. We will continue this medication, #60 with 1 refill of 4 mg tablets. 3. The patient given oxycodone , #150. This is a 30-day supply. I instructed the patient to try to make his medication last and arrived on time for his appointment, so he does not go through withdrawal. The patient verbalizes understanding. 4. He is currently at 75 morphine mEq. Based on the CDC guidelines of his oxycodone, it is our plan to sometimes decrease these again, but currently, we will remain at this level with no increases. 5. The patient is seen in collaboration today with Dr. Davon Monroy. <ELECTRONICALLY SIGNED> By: Grace Hines 12/02/18 1502 1040 [id number] Grace Hines /rogerio
== END ==
LOC: PAIN 11-28 14:29
DX: M54.16 Radiculopathy, lumbar region (principal); M54.2 Cervicalgia; F43.21 Adjustment disorder with depressed mood; Z79.891 Long term (current) use of opiate analgesic; Z88.2 Allergy status to sulfonamides; Z79.899 Other long term (current) drug therapy

== ENCOUNTER → 2018-12-30 | Outpatient (CLI) | payer OTHER, MEDICARE ==
[~2018-12-30] VITALS: Ht 172.7 cm; Wt 72.8 kg
[2018-12-30 09:03] VITALS: BP 153/96
--- NOTE | 2018-12-30 09:24 | NUR ---
Pain Clinic Assessment: 1. History of Osteoarthritis: NECK History of Rheumatoid Arthritis: DENIES 2. Height: 5 ft. 8 in. 172.7 cm. Weight: 160.6 lb. oz. 72.848 kg. Patient's BMI: 24.4 3. Vital Signs: BP: 153/96 Pulse: 77 Resp: 16 Temp: 02 Sat: 100 ECG Mon: 4. Pain Intensity: 7 5. Fall Risk: Dizziness: N Needs help standing or walking: Y Fallen in the last 3 months: Y Fall risk comments: 6. Patient on Blood Thinner: None 7. History of Hypertension: Y 8. Opioid Therapy greater than 6 weeks: Y Opiate Contract Signed: 06/06/18 9. Risk Assessment Tool Provided: 3 LOW 10. Functional Assessment Tool: 11. Recreational Drug Use: Never Drug Type: Tobacco Use: Never Smoker Tobacco Type: Amount or Packs/day: How Many Years: Alcohol Use: No Frequency: Quant:
--- NOTE | 2018-12-31 08:39 | HPC ---
[facility] [address] [place] [address] PAIN MANAGEMENT CONSULTATION Name: TANISHA MAHER Room #: REG [facility] Glenn#: [id number] Admission: 12/30/18 Attend Phys: Grace Hines Discharge: Date of : 56 Report #: [id number] THIS REPORT FOR: //name// CC: Grace Monroy MD DATE OF SERVICE: 12/30/2018 CHIEF COMPLAINT: Chronic intractable low back, lower extremity pain related to nhznx-phq-ohtb amputation and phantom limb pain. HISTORY OF PRESENT ILLNESS: This is a 58-year-old gentleman who returns to the pain clinic today for ongoing left stump pain that is associated with phantom limb as well as ongoing neck and right shoulder pain. He reports his pain score is 7/10 today. He has been out of his oxycodone for 4 days. He denies any signs and symptoms of withdrawal. The patient reports that his son tried to commit suicide a few weeks ago; therefore, he started taking some extra pain pills to deal with his emotional pain and stress that is why he is out early. He did not call to request any early refills. The patient also states he did not have his MRIs performed, so therefore he did not see Dr. Salazar. His son's suicide attempt came at the same time of his appointments, so he has rescheduled those for Sunday afternoon to see Dr. Salazar regarding his ongoing neck pain. The patient also reports that he has been seeing [facility]. He is doing their meditation. He has programs, he is thinking about attending a pain program through [facility]. He has found these very beneficial when he goes and attends these programs. ALLERGIES: SULFA. CURRENT LIST OF MEDICATIONS: Oxycodone 10/325 up to 5 times a day, tizanidine 4 mg t.i.d. p.r.n., bupropion 300 mg daily, omega 3, metformin 500 mg b.i.d., dextroamphetamine 2 tablets a day, gabapentin 1200 mg t.i.d., Valium p.r.n., allopurinol 100 mg daily, atenolol 50 mg at bedtime, lisinopril 20 mg daily, Colestid daily and Synthroid 150 mcg daily. PQRS: 1. The patient has multiple joint osteoarthritis. Denies any rheumatoid arthritis. 2. Height is 5 feet 8 inches, weight is 160, BMI is 24. 3. Vital signs 153/96, pulse is 77, respirations 16, oxygen sat [place] [address] [address] PAIN MANAGEMENT CONSULTATION Name: TANISHA MAHER Room #: REG [facility] Glenn#: [id number] Admission: 12/30/18 Attend Phys: Grace Hines Discharge: Date of : 56 Report #: [id number] 4. Pain score is 7/10. 5. Denies dizziness, he need help walking. He is in a wheelchair today. He has not fallen in the last 3 months. 6. The patient is not on blood thinners, but does take medicine for hypertension. 7. Opioid therapy is greater than 6 weeks; therefore, an opioid signed contract is on the chart. Risk assessment tool is low. Functional assessment is 48/70. 8. Recreational drug use, he denies. He is not a smoker and does not drink alcohol. According to the prescription monitoring system, he is filling appropriately for his medicines, though he is out early again today. He did not call and request any early refills. He is due to fill his medicines. There is also a recent drug screen on the chart that we will recheck at his next visit. PHYSICAL EXAMINATION: GENERAL: This is alert and orientated 58-year-old who appears his stated age. He is in a wheelchair, rating his pain score at 7/10 today. HEENT: Normocephalic, atraumatic. Extraocular eye muscles are intact. Mucous membranes are moist. NECK: Complains of discomfort that radiates into his right shoulder, pain increases with active range of motion of flexion and extension. Does not radiate into his arms presently. MUSCULOSKELETAL: He has tenderness in his left buttock that radiates into his left leg following the L4-L5 dermatomal distribution. He is not wearing his prosthetic device on his left amputation. He is in a wheelchair presently today. IMPRESSION: 1. Chronic intractable left lower extremity pain with lainh-acz-dhow amputation. 2. Lumbar radiculopathy following the L4-L5 dermatomal distribution. 3. Phantom limb pain of the left leg with neuropathic stump pain. 4. Cervical pain with radiculopathy. 5. Situational depression. 6. Complex medical management under terms of written opioid agreement. PLAN: 1. We discussed our treatment plan again today. The patient has got another month without seeing Dr. Salazar or having his MRI performed. He reports his son had a suicide attempt that did cause him some emotional depression and stress that did cause his pain to increase and therefore he did cancel his appointments with Dr. Salazar but has been scheduled for this next week. I encouraged the patient as well as the nurse that pain medications are used to help treat pain, not emotional stress and depression. Patient verbalized understanding that. He will try to take his medications more appropriately as [address] [place] [address] PAIN MANAGEMENT CONSULTATION Name: TANISHA MAHER Room #: REG [facility] Glenn#: [id number] Admission: 12/30/18 Attend Phys: Grace Hines Discharge: Date of : 56 Report #: [id number] scheduled, though he did not request an early refill. 2. Scripts given for oxycodone 10/325 up to 5 tablets a day, #150 for one month only. No tizanidine scripts needed today. 3. Encouraged the patient to continue at [facility] possibly increasing his meditation classes to the next level since he finds those very basic, also encouraged him to seek out other classes that may deal with exercise since he has stopped his physical therapy or other outlets to deal with his pain and stress such as creative writing, cooking, other avenues for distraction for him. The patient verbalizes understanding. They are going to go by [facility] today to see the next month offerings. 4. The patient encouraged to keep his appointment with Dr. Salazar and send them the reports. The patient is to follow up with Dr. Davon Monroy in 1 month. 5. The patient is seen in collaboration with Dr. Marcelo Alba today. <ELECTRONICALLY SIGNED> By: Grace Hines 12/31/18 0839 1002 1411 Grace Hines /nt
== END ==
LOC: PAIN 06:53
DX: M54.16 Radiculopathy, lumbar region (principal); M54.12 Radiculopathy, cervical region; F32.9 Major depressive disorder, single episode, unspecified; G89.29 Other chronic pain; Z79.891 Long term (current) use of opiate analgesic; M79.669 Pain in unspecified lower leg

== ENCOUNTER → 2019-01-27 | Outpatient (CLI) | payer OTHER, MEDICARE ==
[~2019-01-27] VITALS: Ht 172.7 cm; Wt 72.1 kg
--- NOTE | ~2019-01-27 | HPC ---
[facility] [place] [address] PAIN MANAGEMENT CONSULTATION Name: TANISHA MAHER Room #: REG CL Carmen.#: [id number] Admission: 01/27/19 Attend Phys: Davon Monroy MD Discharge: Date of : 56 Report #: [id number] THIS REPORT FOR: //name// CC: Ahsan Monroy DATE OF SERVICE: 01/27/2019 The patient returns to pain clinic today with his . He has chronic pain syndrome. He complains of a variety of pains today. He complains of post-amputation pain, which is both a combination of stump pain as well as phantom limb pain. He is on medication for this condition. He complains mostly today about his neck. He complains of cervicalgia that radiates up into the occiput. It is worse on the left. He has difficulty with rotational movements. Pain can be severe enough to interfere with sleep. He has been on longstanding opioids well before he came to our clinic. We have been providing him with oxycodone 10/325 under terms of written opioid agreement. He originally came to us on 60 mg of oxycodone per day. We have reduced that to 50. I am concerned about polypharmacy. There are significant polypharmacy interactions that may impede his ability to feel better. MEDICATIONS: Include oxycodone, tizanidine, bupropion. He says he has stopped his dextroamphetamine, but he remains on gabapentin, allopurinol, alprazolam, atenolol, lisinopril, Colestid and levothyroxine. ALLERGIES: SULFA. PQRS REVIEW: 1. History of spondylosis of the neck. 2. BMI 24.2. 3. Blood pressure 152/99, heart rate 73. 4. Pain intensity 7-8/10. 5. He is a fall risk and needs help with transfers. He has above-knee amputation on the left. 6. He is on no blood thinning medications. 7. History of hypertension. 8. He is on an opioid agreement signed originally in our clinic on 06/06/2018 and he completed an opioid risk tool at that time, scoring 3, which is considered low risk for addiction. 9. Functional assessment score, which is 48/70. 10. Denies use of recreational drugs. Denies use of tobacco, denies use of alcohol. [facility] [address] [place] [address] PAIN MANAGEMENT CONSULTATION Name: TANISHA MAHER Room #: REG CLStephon Elizabeth#: [id number] Admission: 01/27/19 Attend Phys: Davon Monroy MD Discharge: Date of : 56 Report #: [id number] PHYSICAL EXAMINATION: He is mildly depressed. Vital signs as noted. Examination of the neck reveals diminished range of motion, particularly in extension, lateral rotation and lateral tilt to the left. Examination of the neck reveals no masses, but there is tenderness mostly along the left side of the neck along the spinous processes and then extending down into the area of trapezius, extending out along the spine of the scapula and he also has pain that radiates down the back. Minimal pain is noted on the right. All pain seems to be on the left. Deep tendon reflexes are diminished, biceps, triceps and brachioradialis, but present. 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 Strength is adequate. IMPRESSION: 1. Chronic pain syndrome with multiple pain generators including phantom limb pain and cervicalgia with spondylosis. 2. Polypharmacy. Medication management under terms of written agreement. RECOMMENDATIONS: 1. Discussed the importance of mobility. I have referred him to Dr. Al for chiropractic soft tissue myofascial release. 2. Twenty minutes of counseling regarding medication use. He needs to avoid overmedicating with opioids. They will be less effective in that role. I also discussed concerns about polypharmacy and I have recommended that he discuss with his other providers a tapering of some of his other centrally acting drugs. I think he will feel better and his pain will be under better control. Discussed the importance of mobility throughout his neck. 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 I think he actually needs just the opposite. He needs to get gentle range of motion sustained and that should help with the neck pain, which is primarily myofascial. Prescription was renewed for him. He is seen on a monthly basis. Urine drug screen was performed. He admitted to me today that he had taken all of his oxycodone within 20 days. If this was intended to convince me that he needed more medication, it did quite the opposite. I have discussed with him using his medicines more carefully and cautiously. We discussed how to use his medications in anticipation of activities. We talked about using smaller amounts of medication on good days. Discussed side effects of which he denies any. We talked very openly about the opioid crisis and the importance of safeguarding all medications and following our recommendations. I have checked his prescription drug monitoring program information and there are no unexpected entries. [facility] [address] [place] [address] PAIN MANAGEMENT CONSULTATION Name: TANISHA MAHER Room #: REG [facility] MinervaCharles.#: [id number] Admission: 01/27/19 Attend Phys: Davon Monroy MD Discharge: Date of : 56 Report #: [id number] A followup visit is scheduled for him in 1 month with Grace Hines APRN. We will see him at that time as well. By: 1250 [id number] Davon Monroy MD /nt
[2019-01-27 09:09] VITALS: BP 152/99
--- NOTE | 2019-01-27 09:32 | NUR ---
Pain Clinic Assessment: 1. History of Osteoarthritis: NECK History of Rheumatoid Arthritis: Not Applicable 2. Height: 5 ft. 8 in. 172.7 cm. Weight: 159.0 lb. oz. 72.122 kg. Patient's BMI: 24.2 3. Vital Signs: BP: 152/99 Pulse: 73 Resp: 14 Temp: 02 Sat: 100 ECG Mon: 4. Pain Intensity: 7.5 5. Fall Risk: Dizziness: Y Needs help standing or walking: Y Fallen in the last 3 months: Y Fall risk comments: 6. Patient on Blood Thinner: None 7. History of Hypertension: Y 8. Opioid Therapy greater than 6 weeks: Y Opiate Contract Signed: 06/06/18 9. Risk Assessment Tool Provided: 3 LOW 10. Functional Assessment Tool: 11. Recreational Drug Use: Never Drug Type: Tobacco Use: Never Smoker Tobacco Type: Amount or Packs/day: How Many Years: Alcohol Use: No Frequency: Quant:
== END ==
LOC: PAIN 06:55
DX: G89.29 Other chronic pain (principal); M54.2 Cervicalgia; M47.812 Spondylosis without myelopathy or radiculopathy, cervical region; Z79.899 Other long term (current) drug therapy

== ENCOUNTER → 2019-02-24 | Outpatient (CLI) | payer OTHER, MEDICARE ==
[~2019-02-24] VITALS: Ht 172.7 cm; Wt 71.0 kg
[~2019-02-24] MED LIST changes: +CARVEDILOL25 MG PO
[2019-02-24 08:15] VITALS: BP 136/93
--- NOTE | 2019-02-24 08:26 | NUR ---
Pain Clinic Assessment: 1. History of Osteoarthritis: NECK History of Rheumatoid Arthritis: DENIES 2. Height: 5 ft. 8 in. 172.7 cm. Weight: 156.6 lb. oz. 71.033 kg. Patient's BMI: 23.8 3. Vital Signs: BP: 136/93 Pulse: 81 Resp: 14 Temp: 02 Sat: 100 ECG Mon: 4. Pain Intensity: 7 5. Fall Risk: Dizziness: N Needs help standing or walking: Y Fallen in the last 3 months: Y Fall risk comments: 6. Patient on Blood Thinner: None 7. History of Hypertension: Y 8. Opioid Therapy greater than 6 weeks: Y Opiate Contract Signed: 06/06/18 9. Risk Assessment Tool Provided: 3 LOW 10. Functional Assessment Tool: 11. Recreational Drug Use: Never Drug Type: Tobacco Use: Never Smoker Tobacco Type: Amount or Packs/day: How Many Years: Alcohol Use: No Frequency: Quant:
--- NOTE | 2019-02-25 08:12 | HPC ---
[facility] [address] [place] [address] PAIN MANAGEMENT CONSULTATION Name: TANISHA MAHER Room #: REG [facility] Glenn#: [id number] Admission: 02/24/19 Attend Phys: Grace Hines Discharge: Date of : 56 Report #: [id number] THIS REPORT FOR: //name// CC: Grace Monroy MD DATE OF SERVICE: 02/24/2019 CHIEF COMPLAINT: Chronic intractable low back pain, left lower extremity pain related to [id number] amputation. HISTORY OF PRESENT ILLNESS: This is a 58-year-old gentleman who returns to the clinic with his complaining of pain in his neck, mid back and phantom limb pain. Today, he reports a pain score of 7/10. He does report when he is taking his pain pills, it is a 5/10. He reports that he took his last two oxycodone yesterday stating he made his medications last until his appointment today and had not run out ahead of time. The patient does report that yesterday he had increased pain in his mid back. He has been seeing a chiropractor and that that was very beneficial and will make another appointment for this week to see if that can help reduce some of his thoracic pain. He reports he is also going to have an MRI of his mid back. Dr. Salazar's office had ordered this with contrast. He is having this performed later in the month. The patient states that any activity does exacerbate his pain. He feels that the medications are beneficial when he takes 6 tablets a day of his oxycodone. He is here requesting refills today. ALLERGIES: SULFA. CURRENT LIST OF MEDICATIONS: Carvedilol 25 mg b.i.d., tizanidine 4 mg 2 a day, oxycodone 10/325 p.r.n., buprenorphine 300 mg, Lovaza, Glucophage, amphetamine salts, gabapentin, allopurinol, alprazolam, atenolol, lisinopril, Colestid and Synthroid. PATIENT'S PQRS: 1. He has a history of spondylosis in his neck. Denies rheumatoid arthritis. 2. Height is 5 feet 8 inches, weight is 156, BMI is 23. 3. Vital signs 136/93, pulse is 81, respirations 14, and oxygen sat is 100. 4. Pain score is 5-7/10. 5. Denies dizziness. Does need help walking. He is in a wheelchair and has fallen out of bed in the last 3 months, did not seek medical attention as far as the Emergency Room. 6. The patient is not on any blood thinners, but does take medicine for hypertension. [address] [address] PAIN MANAGEMENT CONSULTATION Name: TANISHA MAHER Room #: REG [facility] Elizabeth#: [id number] Admission: 02/24/19 Attend Phys: Grace Hines Discharge: Date of : 56 Report #: [id number] 7. Opiate therapy is greater than 6 weeks; therefore, an opioid signed contract is on the chart. Risk assessment tool is low. Functional assessment is 48/70. 8. Recreational drug use, he denies. He is not a smoker and does not drink alcohol. According to the prescription monitoring system, the patient is due to fill his medications this week. There is a recent drug screen on the chart that does show negative for his oxycodone, which he reported he had been out for several days. It also does not show positive for his Adderall that is positive for his alprazolam. According to the CDC guidelines, his morphine milliequivalent per day is 75 mEq. PHYSICAL EXAMINATION: GENERAL: This is an alert and orientated, slightly depressed 58-year-old gentleman who appears his stated age, placing his pain score from 5-7 today. HEENT: Normocephalic, atraumatic. Extraocular eye muscles are intact. NECK: He has decreased range of motion, especially in the lateral tilt to the left and rotation. There is tenderness along the spinal processes. He has tenderness along his thoracic spine as well. MUSCULOSKELETAL: His upper extremity strength judged to be 5/5 in all major muscle groups. He has tenderness in his lumbar spine. He is not wearing his prosthetic device on his left amputation. He is in a wheelchair presently today. IMPRESSION: 1. Chronic pain syndrome with multiple pain generators including phantom limb pain. 2. Cervicalgia with spondylosis. 3. Polypharmacy medication management under terms of written opioid agreement. We reviewed the fact that opiate medications are being used to provide analgesia adequate to support activities of daily living, not attempting to achieve a specific pain score on the 0-10 Visual Analog Scale. The current opiate medications are providing sufficient analgesia to allow the patient to participate in activities of daily living. The patient is not exhibiting any aberrant behavior suggestive of drug diversion. The patient is not having any adverse reactions to medications. The patient is not suffering from daytime somnolence or mental acuity changes. The patient is managing opiate-induced constipation with appropriate kaju-quu-aoczagt agents and dietary considerations. The patient was counseled on concern for caution with operating a motor vehicle while using opiate medications. A physical exam was performed and the patient's functional status was evaluated. All patients with back pain were advised against the bed rest greater than 4 days and were advised to return to normal activities. Pain score assessment was noted and the treatment plan was reviewed with the patient. All current [facility] [address] [place] [address] PAIN MANAGEMENT CONSULTATION Name: TANISHA MAHER Room #: REG [facility] Elizabeth#: [id number] Admission: 02/24/19 Attend Phys: Grace Hines Discharge: Date of : 56 Report #: [id number] medications, both prescribed and OTC were reviewed and reconciled on the electronic medical record. Tobacco screening was accomplished and smoking cessation was advised when indicated. BMI was noted and diet/exercise modification was recommended for all patients following outside normal parameters. I reviewed with the patient today their responsibilities to safeguard prescription medications, reviewed their responsibility to utilize medications only as prescribed by the physician. They are to seek and receive pain medications only from 1 physician group ( [facility]). They are to use 1 pharmacy and keep the clinic informed if they change pharmacies. Their responsibilities include making followup visits in a timely fashion and to avoid abrupt discontinuation of medication usage. Their responsibilities further include bringing their medications (bottles from the pharmacy with residual pills) to the visit for possible confirmation of pill counts and the patient understands it is their responsibility to submit to random drug screens to ensure both that the medications prescribed are present, and that no other controlled substances are present. All prescriptions provided today were generated electronically. PLAN: 1. We discussed treatment options with the patient today. I encouraged the patient to go back to Dr. Stein for chiropractic myofascial release. He did obtain one session and thought it was beneficial. I encouraged him to go call today for another appointment and encouraged him to follow through for several appointments to see if that helps decrease his pain. 2. We will refill his oxycodone 10/325 up to 5 tablets a day, quantity 150. I explained to the patient that he is only to take 5 tablets max a day. His 150 is for a 30-day supply. The patient was pleased with himself that he had not run out prior to today's visit. I explained to him that this has been 28 days. He still had 2 days left of his 30-day supply medicine. I encouraged the patient to be mindful of taking 5 a day max and try to utilize other therapies as far as stretching, massage, heat, ice to decrease some of his pain issues as opposed to taking a pain pill. He verbalizes understanding. 3. The patient is not in need of tizanidine today. He has plenty of refills. 4. We explained to the patient to have his MRI sent to us that he is having done later in the month on his thoracic spine as well as Dr. Salazar. 5. The patient is seen today in collaboration with Dr. Davon Monroy and Dr. Ahsan Jean. The patient will be seen in 1 month. <ELECTRONICALLY SIGNED> By: Grace Hines 02/25/19 0812 0929 [id number] Grace Hines /rogerio
== END ==
LOC: PAIN 06:50
DX: M47.812 Spondylosis without myelopathy or radiculopathy, cervical region (principal); G89.4 Chronic pain syndrome; M79.662 Pain in left lower leg; Z89.612 Acquired absence of left leg above knee; Z79.891 Long term (current) use of opiate analgesic; Z79.899 Other long term (current) drug therapy; Z88.2 Allergy status to sulfonamides

== ENCOUNTER → 2019-04-17 | Outpatient (CLI) | payer OTHER, MEDICARE ==
[~2019-04-17] VITALS: Ht 172.7 cm; Wt 70.8 kg
[~2019-04-17] MED LIST changes: +DIAZEPAM 10 MG10 M1 PO; +NARCAN4 MG NARES
[2019-04-17 09:23] VITALS: BP 103/77
--- NOTE | 2019-04-17 09:37 | NUR ---
Pain Clinic Assessment: 1. History of Osteoarthritis: NECK History of Rheumatoid Arthritis: DENIES 2. Height: 5 ft. 8 in. 172.7 cm. Weight: 156.0 lb. oz. 70.761 kg. Patient's BMI: 23.7 3. Vital Signs: BP: 103/77 Pulse: 84 Resp: 14 Temp: 02 Sat: 96 ECG Mon: 4. Pain Intensity: 8 5. Fall Risk: Dizziness: N Needs help standing or walking: Y Fallen in the last 3 months: Y Fall risk comments: 6. Patient on Blood Thinner: None 7. History of Hypertension: Y 8. Opioid Therapy greater than 6 weeks: Y Opiate Contract Signed: 06/06/18 9. Risk Assessment Tool Provided: 3 LOW 10. Functional Assessment Tool: 11. Recreational Drug Use: Never Drug Type: Tobacco Use: Never Smoker Tobacco Type: Amount or Packs/day: How Many Years: Alcohol Use: No Frequency: Quant:
--- NOTE | 2019-04-17 15:19 | HPC ---
[facility] [place] [address] PAIN MANAGEMENT CONSULTATION Name: TANISHA MAHER Room #: REG [facility] Glenn#: [id number] Admission: 04/17/19 Attend Phys: Grace Hines Discharge: Date of : 56 Report #: [id number] THIS REPORT FOR: cc: Ahsan Valdes James E DO Hocker,Grace BROWN ~ DATE OF SERVICE: 04/17/2019 CHIEF COMPLAINT: Chronic intractable low back pain, left lower extremity pain related to above the knee amputee and right ankle pain. HISTORY OF PRESENT ILLNESS: This is a 58-year-old gentleman who returns to the pain clinic today for refill of his medications. He recently fell in February and fractured his right ankle. He required surgery, now has several plates and screws in his ankle. He is in an immobilized boot and is nonweightbearing for at least another 6 weeks before he will start physical therapy. Today, he is complaining of increased pain in that ankle. Aside from his phantom limb pain on his right lower extremity, rating his pain score at 8/10 today. He reports some aching, throbbing and sharp pain that is worse with activity. He feels that the medications are beneficial in controlling his pain. The patient has been getting his opioid medications from Dr. Gail Kwan since his recent hospitalization and fracture. We discussed that he received his last prescription from him yesterday. The patient is not needing his medications until next week on the for his opioid medications. The patient states he will no longer be getting his medicines from that physician. He is on his last prescription. ALLERGIES: SULFA. CURRENT LIST OF MEDICATIONS: Diazepam 10 mg b.i.d. p.r.n., oxycodone 10/325 p.r.n., carvedilol, tizanidine p.r.n., bupropion, omega 3, metformin, dextroamphetamine, gabapentin, allopurinol, Xanax 1 mg, lisinopril, Colestid and Synthroid. PQRS: 1. He has a history of spondylosis in his neck. Denies any rheumatoid arthritis. 2. Height is 5 feet 8 inches, weight is 156, BMI is 23. 3. Vital signs: 103/77, pulse is 84, respirations 14, oxygen sat is 96. Pain score is 8/10. Denies dizziness. He does need help walking and standing. He is nonweightbearing, in a wheelchair today. He has fallen in the last 3 months. The patient is not on any blood thinners, but does take medicine for hypertension. His opioid therapy is greater than 6 weeks; therefore, an opioid signed contract is on the chart. Risk assessment [place] [address] PAIN MANAGEMENT CONSULTATION Name: TANISHA MAHER Room #: REG [facility] Elizabeth#: [id number] Admission: 04/17/19 Attend Phys: Grace Hines Discharge: Date of : 56 Report #: [id number] assessment is 48/70. 4. Recreational drug use, he denies. He is not a smoker and does not drink alcohol. According to the prescription monitoring system, the patient filled his last prescription yesterday from his surgeon. He is also filling alprazolam and diazepam. We discussed the opioid/benzodiazepine interaction as well as the fact that he takes 2 benzodiazepines. The patient states he takes Valium for muscle relaxant. We again discussed that tizanidine for muscle spasms as well as Valium. He will need to stop the Valium. According to the CDC guidelines, his morphine mEq per day is 75. There is a recent drug screen on the chart as well. PHYSICAL EXAMINATION: GENERAL: This is alert and orientated 58-year-old gentleman who appears his stated age, placing his current pain score at 8/10. HEENT: Normocephalic, atraumatic. Extraocular eye muscles are intact. NECK: He has decreased range of motion. There is tenderness along his spinal processes. MUSCULOSKELETAL: His upper extremity strength judged to be 5/5 in all major muscle groups. He has tenderness in his lower back and pain in his right ankle, it is immobilized in a walking boot, though he is nonweightbearing today, he is not wearing his prosthetic device on his lower left extremity. He is in a wheelchair today. IMPRESSION: 1. Chronic pain syndrome with multiple pain generators including phantom limb pain. 2. Recent right ankle fracture with hardware placement. 3. Cervicalgia with spondylosis. 4. Polypharmacy. Medication management under terms of written opioid agreement. We reviewed the fact that opiate medications are being used to provide analgesia adequate to support activities of daily living, not attempting to achieve a specific pain score on the 0-10 Visual Analog Scale. The current opiate medications are providing sufficient analgesia to allow the patient to participate in activities of daily living. The patient is not exhibiting any aberrant behavior suggestive of drug diversion. The patient is not having any adverse reactions to medications. The patient is not suffering from daytime somnolence or mental acuity changes. The patient is managing opiate-induced constipation with appropriate yupu-mgx-obpbvzb agents and dietary considerations. The patient was counseled on concern for caution with operating a motor vehicle while using opiate medications. A physical exam was performed and the patient's functional status was evaluated. [address] [place] [address] PAIN MANAGEMENT CONSULTATION Name: TANISHA MAHER Room #: REG [facility] Elizabeth#: [id number] Admission: 04/17/19 Attend Phys: Grace STEPHANIE Hines Discharge: Date of : 56 Report #: [id number] All patients with back pain were advised against the bed rest greater than 4 days and were advised to return to normal activities. Pain score assessment was noted and the treatment plan was reviewed with the patient. All current medications, both prescribed and OTC were reviewed and reconciled on the electronic medical record. Tobacco screening was accomplished and smoking cessation was advised when indicated. BMI was noted and diet/exercise modification was recommended for all patients following outside normal parameters. I reviewed with the patient today their responsibilities to safeguard prescription medications, reviewed their responsibility to utilize medications only as prescribed by the physician. They are to seek and receive pain medications only from 1 physician group ( [facility]). They are to use 1 pharmacy and keep the clinic informed if they change pharmacies. Their responsibilities include making followup visits in a timely fashion and to avoid abrupt discontinuation of medication usage. Their responsibilities further include bringing their medications (bottles from the pharmacy with residual pills) to the visit for possible confirmation of pill counts and the patient understands it is their responsibility to submit to random drug screens to ensure both that the medications prescribed are present, and that no other controlled substances are present. All prescriptions provided today were generated electronically. PLAN: 1. We discussed treatment options at great length today. I explained that we had received letters from the insurance companies stating he is on multiple benzodiazepines and discussed the risk of those medications with him today regarding his opioid use. I explained to him he cannot be on 2 different benzodiazepines, Valium and alprazolam. We will have him discontinue his Valium. He does take tizanidine for muscle relaxant. He will continue that and no longer take his diazepam for muscle relaxant. 2. I encouraged him not to use the Xanax and the oxycodone at the same time. The patient reports he does not. 3. We will prescribe Narcan in case of emergency. His is thankful to have this at home. He has not had any episodes of over medication or problems with respiratory depression from his medications, but this is in case of an emergency only. His insurance company did recommend he have a prescription. 4. We will refill his oxycodone , #150 to release on 04/22/2019 after he has finished his last prescription from his other physician. He will no longer receive any opioids from him. We will continue his tizanidine 4 mg, #60 with 1 additional refill. 5. The patient verbalizes understanding all of this. He will make an [address] [address] PAIN MANAGEMENT CONSULTATION Name: TANISHA MAHER Room #: REG [facility] Elizabeth#: [id number] Admission: 04/17/19 Attend Phys: Grace Hines Discharge: Date of : 56 Report #: [id number] appointment for 1 month followup. The patient was seen in collaboration with Dr Monroy who did send his prescriptions electronically. <ELECTRONICALLY SIGNED> By: Grace Hines 04/17/19 1519 1119 [id number] Grace Hines /nt
== END ==
LOC: PAIN 04-07 06:38
DX: M54.5 Low back pain (principal); G89.4 Chronic pain syndrome; M54.2 Cervicalgia; Z88.8 Allergy status to other drugs, medicaments and biological substances; Z79.899 Other long term (current) drug therapy

== ENCOUNTER → 2019-05-22 | Outpatient (CLI) | payer OTHER, MEDICARE | LOC: TELEPC 07:27 | DX: S82.891D Other fracture of right lower leg, subsequent encounter for closed fracture with routine healing (principal); M54.5 Low back pain; M79.605 Pain in left leg; G89.4 Chronic pain syndrome; M47.812 Spondylosis without myelopathy or radiculopathy, cervical region; Z79.899 Other long term (current) drug therapy; Z88.2 Allergy status to sulfonamides; X58.XXXD Exposure to other specified factors, subsequent encounter ==

== ENCOUNTER → 2019-06-19 | Outpatient (CLI) | payer OTHER, MEDICARE ==
[~2019-06-19] VITALS: Ht 180.3 cm; Wt 68.0 kg
[~2019-06-19] MED LIST changes: +AMITIZA 24 MCG24 MC1 PO
--- NOTE | ~2019-06-19 | HPC ---
[facility] [address] [place] [address] PAIN MANAGEMENT CONSULTATION Name: TANISHA MAHER [id number] Admission: 06/19/19 Attend Phys: Grace Hines Discharge: Date of : 56 Report #: [id number] THIS REPORT FOR: cc: Ahsan Valdes James E DO Hocker,Grace BROWN ~ CC: Grace Monroy MD DATE OF SERVICE: 06/19/2019 CHIEF COMPLAINT: Chronic intractable low back pain, left lower extremity pain and right ankle pain. HISTORY OF PRESENT ILLNESS: This is a 58-year-old gentleman who returns to the pain clinic today for refill of his opioid medications that he takes for his back pain and ongoing lower extremity pain with phantom limb pain. He continues to have a problematic right ankle. Today, he has been in the boot. He is continuing to seek treatment from the [facility] doctor, who recently told him to start some weightbearing exercises to see how his pain progresses. The patient reports that he is having a sharp, electrical throbbing pain in that ankle. It intensifies when he puts weight on his leg. He is to follow up with Dr. Perez next week. Today, he reports overall pain score is 7/10. Pain is worse with any activity. He feels that the medications are somewhat beneficial, though he feels that at times they are not strong enough. The patient does report that he is reconsidering having his spinal cord stimulator trial, which has been on hold per his request. He feels that since his pain has been increasing that may be a viable option for him. ALLERGIES: SULFA. CURRENT LIST OF MEDICATIONS: Tizanidine 4 mg daily, oxycodone 10/325 five times a day, Coreg, bupropion, omega 3, metformin, amphetamine, gabapentin 1200 mg t.i.d., alprazolam, Zestril, colestipol and Synthroid. PQRS: 1. He has osteoarthritis in his neck and denies any rheumatoid arthritis. 2. Height is 06/23/2019, weight is 150, BMI is 20. 3. Vital signs 121/69, pulse is 78, respirations 18, oxygen sat is 95. 4. Pain score 7/10. 5. Denies dizziness. Does need help walking. He is in a walking boot on his right foot and does have a wheelchair. He has not fallen in the last 3 months. 6. The patient is not on any blood thinners, but does take medicine for hypertension. His opioid therapy is greater than 6 weeks. Opioid signed contract is on the chart. Risk assessment tool is low. Functional assessment [address] [address] PAIN MANAGEMENT CONSULTATION Name: TANISHA MAHER Room #: REG [facility] Elizabeth#: [id number] Admission: 06/19/19 Attend Phys: Grace Hines Discharge: Date of : 56 Report #: [id number] is 48/70. 7. Recreational drug use, he denies. He is not a smoker and does not drink alcohol. According to the prescription monitoring system, he is due to fill his medication this week for his opioid medications. PHYSICAL EXAMINATION: GENERAL: This is alert and orientated 58-year-old gentleman who appears his stated age, placing his current pain score at 7/10. He is a good historian. HEENT: Normocephalic, atraumatic. Extraocular eye muscles are intact. He does have a mask on today. MUSCULOSKELETAL: The patient reports throbbing, electrical pain in his right ankle, is not visualized today due to his brace on his right foot. Able to stand briefly, applying pressure to that foot. His left lower extremity is amputee with no prosthetic device on today. He has lower back tenderness. IMPRESSION: 1. Chronic pain syndrome with multiple pain generators including phantom limb pain. 2. Right ankle fracture with hardware placement in a walking boot. 3. Cervicalgia with spondylosis. 4. Polypharmacy medical management under terms of written opioid agreement. PLAN: 1. We discussed treatment options with the patient today. The patient reports significant pain in his right ankle. He has continued to have followup visits with his surgeon when it is scheduled for next week where he may need to have another procedure. He is unsure at this time and he has recently started weightbearing on his right foot. 2. The patient did question about a spinal cord stimulator trial, he believes that he is wanting to start the process for this pain management option. I explained to him that the physicians will monitor his right ankle healed with no further surgery pending before they will trial the spinal cord stimulator, as it poses a risk for an infection. The patient verbalizes understanding. 3. Scripts sent electronically by Dr. Davon Monroy for his oxycodone , #150. The patient is not needing tizanidine filled at this time. He only takes one tablet at bedtime due to the drowsiness that a cause, but he feels that it is beneficial. The patient does remain off his Valium, which we encouraged him to stop several months ago. 4. The patient will follow up in 1 month and report how his ankle is healing. By: [id number] Grace bermudez
[2019-06-19 13:04] VITALS: BP 121/69
--- NOTE | 2019-06-19 13:15 | NUR ---
Pain Clinic Assessment: 1. History of Osteoarthritis: NECK History of Rheumatoid Arthritis: DENIES 2. Height: 5 ft. 11 in. 180.3 cm. Weight: 150.0 lb. oz. 68.040 kg. Patient's BMI: 20.9 3. Vital Signs: BP: 121/69 Pulse: 78 Resp: 18 Temp: 02 Sat: 95 ECG Mon: 4. Pain Intensity: 7 5. Fall Risk: Dizziness: N Needs help standing or walking: N Fallen in the last 3 months: N Fall risk comments: 6. Patient on Blood Thinner: None 7. History of Hypertension: Y 8. Opioid Therapy greater than 6 weeks: Y Opiate Contract Signed: 06/06/18 9. Risk Assessment Tool Provided: 3 LOW 10. Functional Assessment Tool: 11. Recreational Drug Use: Never Drug Type: Tobacco Use: Never Smoker Tobacco Type: Amount or Packs/day: How Many Years: Alcohol Use: No Frequency: Quant:
== END ==
LOC: PAIN 06:55
DX: M47.812 Spondylosis without myelopathy or radiculopathy, cervical region (principal); M54.5 Low back pain; M25.571 Pain in right ankle and joints of right foot; G89.4 Chronic pain syndrome; F11.20 Opioid dependence, uncomplicated; Z88.2 Allergy status to sulfonamides; Z79.899 Other long term (current) drug therapy

== ENCOUNTER → 2019-07-21 | Outpatient (CLI) | payer OTHER, MEDICARE | LOC: PAIN 07:04 | DX: M47.812 Spondylosis without myelopathy or radiculopathy, cervical region (principal); M12.88 Other specific arthropathies, not elsewhere classified, other specified site ==

== ENCOUNTER → 2019-08-21 | Outpatient (CLI) | payer OTHER, MEDICARE ==
[~2019-08-21] VITALS: Ht 180.3 cm; Wt 70.3 kg
[2019-08-21 12:58] VITALS: BP 161/98
--- NOTE | 2019-08-21 13:04 | NUR ---
Pain Clinic Assessment: 1. History of Osteoarthritis: NECK SHOULDERS History of Rheumatoid Arthritis: DENIES 2. Height: 5 ft. 11 in. 180.3 cm. Weight: 155.0 lb. oz. 70.308 kg. Patient's BMI: 21.6 3. Vital Signs: BP: 161/98 Pulse: 91 Resp: 18 Temp: 02 Sat: 96 ECG Mon: 4. Pain Intensity: 7 5. Fall Risk: Dizziness: N Needs help standing or walking: Y Fallen in the last 3 months: N Fall risk comments: 6. Patient on Blood Thinner: None 7. History of Hypertension: Y 8. Opioid Therapy greater than 6 weeks: Y Opiate Contract Signed: 06/06/18 9. Risk Assessment Tool Provided: 3 LOW 10. Functional Assessment Tool: 11. Recreational Drug Use: Never Drug Type: Tobacco Use: Never Smoker Tobacco Type: Amount or Packs/day: How Many Years: Alcohol Use: No Frequency: Quant:
--- NOTE | 2019-08-22 07:56 | HPC ---
[facility] [address] [place] [address] PAIN MANAGEMENT CONSULTATION Name: TANISHA MAHER [id number] Admission: 08/21/19 Attend Phys: Grace Hines Discharge: Date of : 56 Report #: [id number] THIS REPORT FOR: cc: hAsan Valdes,Ahsan Verduzco,Grace BROWN ~ CC: Grace Monroy MD DATE OF SERVICE: 08/21/2019 CHIEF COMPLAINT: Chronic low back pain, chronic lower extremity pain with phantom limb pain and ongoing right ankle pain. HISTORY OF PRESENT ILLNESS: This is a 59-year-old gentleman who returns to the pain clinic today for refill of his opioid medications. He states that he has been able to put pressure on his right foot and ankle, able to walk very short distances, but he does notice increased pain in this area since he had been mostly bedridden for the last few months since his fracture. He states his pain score is 7/10, which is a sharp lightning bolt. He continues to have phantom leg pain in his left leg as well. He reports that medications are beneficial, but is requesting to continue at the current rate of medications of 135 pills per month for another month before decreasing to 120 pills. He finds his TENS unit beneficial as well. He denies problems with constipation as long as he controls his diet and takes tgho-dju-jtxpsbz stool softeners. ALLERGIES: SULFA. CURRENT LIST OF MEDICATIONS: Oxycodone 10325 p.r.n., tizanidine p.r.n., carvedilol, Wellbutrin, Lovaza, Glucophage, gabapentin, Xanax, Zestril, Colestid and Synthroid. PQRS: 1. He has osteoarthritis and spondylosis in his cervical spine. He denies any rheumatoid arthritis. 2. Height is 5 feet 11 inches, weight is 155, BMI is 21. 3. Vital signs 161/98, pulse is 91, respirations 18, oxygen sat is 96%. 4. Pain score 7/10. 5. Denies dizziness, does need assistance walking. He is in a wheelchair today. He is not wearing his prosthesis. He has not fallen in the last 3 months. 6. The patient is not on any blood thinners, but does take medicine for hypertension. His opioid therapy is greater than 6 weeks; therefore, an opioid signed contract is on the chart. Risk assessment tool is low. Functional assessment is 48/70. 7. Recreational drug use, he denies. He does not smoke [place] [address] PAIN MANAGEMENT CONSULTATION Name: GUNNARTANISHA Trent [facility] #: [facility] [id number] Admission: 08/21/19 Attend Phys: Grace Hines Discharge: Date of : 56 Report #: [id number] alcohol. According to the prescription monitoring system, the patient is filling appropriately for his medications. He is due to fill those medications today. His morphine milliequivalent according to the CDC guidelines is 65. There is a recent drug screen on the chart that was discussed with the patient. PHYSICAL EXAMINATION: GENERAL: This is alert and orientated gentleman who appears his stated age, placing his pain score at 7/10 today. HEENT: Normocephalic, atraumatic. Extraocular eye muscles are intact. He is wearing a mask. MUSCULOSKELETAL: He has a boot on his right ankle. Pain is increased with ambulation on that foot. He is not wearing his prosthesis on his left scqzc-nsp-euvk amputation. He is in a wheelchair today. IMPRESSION: 1. Chronic pain syndrome with multiple pain generators including phantom limb pain. 2. Severe arthropathies, right knee, bilateral shoulders, right foot and ankle. 3. Opioid management under terms of written agreement, slowly tapering dose. We reviewed the fact that opiate medications are being used to provide analgesia adequate to support activities of daily living, not attempting to achieve a specific pain score on the 0-10 Visual Analog Scale. The current opiate medications are providing sufficient analgesia to allow the patient to participate in activities of daily living. The patient is not exhibiting any aberrant behavior suggestive of drug diversion. The patient is not having any adverse reactions to medications. The patient is not suffering from daytime somnolence or mental acuity changes. The patient is managing opiate-induced constipation with appropriate swot-ele-uuwhzya agents and dietary considerations. The patient was counseled on concern for caution with operating a motor vehicle while using opiate medications. PLAN: 1. We discussed treatment options with the patient today. Our plan was to decrease from 135 tablets of Oxycodone 10/325 to 120. The patient is going to start physical therapy this week. I have agreed to continue for one additional month at his current dosage and then in the next visit, which he is seen on a monthly basis, we will decrease him to 120 pills per month. I explained to the patient that our plan is to continue to taper him and at that time, we will decrease him. The patient does agree with this plan of care. He is hopeful to have his boot removed and ambulating by that time. 2. We will not fill his tizanidine today. He still has a refill. He takes this sparingly, but finds it very beneficial. 3. The patient denies any problems with constipation or daytime somnolence as a [facility] [address] [place] [address] PAIN MANAGEMENT CONSULTATION Name: TANISHA MAHER Room #: REG [facility] Elizabeth#: [id number] Admission: 08/21/19 Attend Phys: Grace Hines Discharge: Date of : 56 Report #: [id number] result of his medications. 4. The patient will return in 1 month. The patient is seen in collaboration with Dr. Davon Monroy. <ELECTRONICALLY SIGNED> By: Grace Hines 08/22/19 [id number] Grace Hines /nt
== END ==
LOC: PAIN 07-22 07:00
PROVIDERS: ATTEND Clinical Nurse Specialist Adult Health
DX: M47.812 Spondylosis without myelopathy or radiculopathy, cervical region (principal); M12.812 Other specific arthropathies, not elsewhere classified, left shoulder; M12.811 Other specific arthropathies, not elsewhere classified, right shoulder; M12.861 Other specific arthropathies, not elsewhere classified, right knee; M12.871 Other specific arthropathies, not elsewhere classified, right ankle and foot; Z79.899 Other long term (current) drug therapy

== ENCOUNTER → 2019-09-18 | Outpatient (CLI) | payer OTHER, MEDICARE ==
[~2019-09-18] VITALS: Ht 175.3 cm; Wt 72.1 kg
[2019-09-18 11:10] VITALS: BP 160/97
--- NOTE | 2019-09-18 11:23 | NUR ---
Pain Clinic Assessment: 1. History of Osteoarthritis: NECK SHOULDERS History of Rheumatoid Arthritis: DENIES 2. Height: 5 ft. 9 in. 175.3 cm. Weight: 159.0 lb. oz. 72.122 kg. Patient's BMI: 23.5 3. Vital Signs: BP: 160/97 Pulse: 68 Resp: 14 Temp: 02 Sat: 99 ECG Mon: 4. Pain Intensity: 8 5. Fall Risk: Dizziness: N Needs help standing or walking: Y Fallen in the last 3 months: N Fall risk comments: WHEEL CHAIR 6. Patient on Blood Thinner: None 7. History of Hypertension: Y 8. Opioid Therapy greater than 6 weeks: Y Opiate Contract Signed: 06/06/18 9. Risk Assessment Tool Provided: 3 LOW 10. Functional Assessment Tool: 11. Recreational Drug Use: Never Drug Type: Tobacco Use: Never Smoker Tobacco Type: Amount or Packs/day: How Many Years: Alcohol Use: No Frequency: Quant:
--- NOTE | 2019-09-22 13:24 | HPC ---
[facility] [place] [address] PAIN MANAGEMENT CONSULTATION Name: TANISHA MAHER Room #: [facility] [id number] Admission: 09/18/19 Attend Phys: Grace Hines Discharge: Date of : 56 Report #: [id number] THIS REPORT FOR: cc: Ahsan Valdes,Grace Montalvo ~ CC: Davon Monroy MD DATE OF SERVICE: 09/18/2019 CHIEF COMPLAINT: Chronic low back pain, chronic lower extremity pain with phantom limb pain, ongoing right ankle pain. HISTORY OF PRESENT ILLNESS: This is a 59-year-old gentleman who returns to the pain clinic today for a refill and discussion regarding his opioid medications. He states that he continues to do physical therapy 2 times a week. This is painful in his left ankle and also does cause increased pain in his left leg below knee amputation for his phantom limb. At this time, he currently is walking slightly with crutches, but is in a wheelchair as well. He is rating this pain score at 8/10 today, states it is a sharp, throbbing, electrical feeling of lightning bolts at times. He feels the medication as well as TENS unit are beneficial. He would like to continue at 135 pills for 1 more month before we decreased it to 120 pills. The patient is also requesting to resume Valium as his muscle relaxant in place of tizanidine. He feels that the Valium is more beneficial in decreasing his muscle spasms that he experiences in his leg. He understands that we did stop his Valium in the past due to two benzodiazepines that he was taking. He does take alprazolam from Dr. Valdes and he is asking to stop that medication as well as his tizanidine and start diazepam in place of both of them today. ALLERGIES: SULFA. CURRENT LIST OF MEDICATIONS: Oxycodone 10/325 p.r.n. up to 5 a day max, tizanidine 4 mg daily, carvedilol, bupropion, omega 3, metformin, gabapentin, alprazolam 1 mg p.r.n., lisinopril, Colestid and levothyroxine. PQRS: 1. He has osteoarthritic changes in his neck and shoulders. Denies rheumatoid arthritis. 2. Height is 5 feet 9 inches, weight is 159, BMI is 23. 3. Vital signs: Blood pressure 160/97, pulse is 68, respirations 14, and oxygen sat is 99. 4. Pain score is 8/10. 5. Fall risk. Denies dizziness. Does need assistance walking. He uses a wheelchair and crutches. He is not on any blood thinners, but does take [address] [address] PAIN MANAGEMENT CONSULTATION Name: GUNNARTANISHA Newman Room #: REG [facility] Elizabeth#: [id number] Admission: 09/18/19 Attend Phys: Grace Hines Discharge: Date of : 56 Report #: [id number] medicine for hypertension. His opioid therapy is greater than 6 weeks; therefore, an opioid signed contract is on the chart. Risk assessment is low. Functional assessment is 48/70. 6. Recreational drug use, he denies. He is not a smoker and he does not drink alcohol. According to the prescription monitoring system, his last fill was 08/21/2019. He is due to fill tomorrow for his medications. He did fill his alprazolam on 09/01/2019. We will check a random drug screen on him on his next visit. PHYSICAL EXAMINATION: GENERAL: This is alert and orientated 59-year-old gentleman who is a good historian. He is well-developed, well-nourished, placing his pain score at 8/10 today. HEENT: Normocephalic, atraumatic. Extraocular eye muscles are intact. He is wearing a mask. MUSCULOSKELETAL: He has discomfort in his right ankle increased with ambulation. Well-healed approximated scars on his right ankle. He is not wearing his prosthesis on his left amputee fitey-qky-lero amputee. He is in a wheelchair. IMPRESSION: 1. Chronic pain syndrome with multiple pain generators including phantom limb pain of his left lower extremity. 2. Severe arthropathies right knee, bilateral shoulders, right foot and ankle. 3. Opioid medication management under terms of written agreement, slowly tapering dose. We reviewed the fact that opiate medications are being used to provide analgesia adequate to support activities of daily living, not attempting to achieve a specific pain score on the 0-10 Visual Analog Scale. The current opiate medications are providing sufficient analgesia to allow the patient to participate in activities of daily living. The patient is not exhibiting any aberrant behavior suggestive of drug diversion. The patient is not having any adverse reactions to medications. The patient is not suffering from daytime somnolence or mental acuity changes. The patient is managing opiate-induced constipation with appropriate gozu-aol-shdrvwd agents and dietary considerations. The patient was counseled on concern for caution with operating a motor vehicle while using opiate medications. A physical exam was performed and the patient's functional status was evaluated. All patients with back pain were advised against the bed rest greater than 4 days and were advised to return to normal activities. Pain score assessment was noted and the treatment plan was reviewed with the patient. All current medications, both prescribed and OTC were reviewed and reconciled on the electronic medical record. Tobacco screening was accomplished and smoking [facility] [address] [place] [address] PAIN MANAGEMENT CONSULTATION Name: TANISHA MAHER Room #: REG [facility] Carmen.#: [id number] Admission: 09/18/19 Attend Phys: Grace Hines Discharge: Date of : 56 Report #: [id number] cessation was advised when indicated. BMI was noted and diet/exercise modification was recommended for all patients following outside normal parameters. I reviewed with the patient today their responsibilities to safeguard prescription medications, reviewed their responsibility to utilize medications only as prescribed by the physician. They are to seek and receive pain medications only from 1 physician group ( [facility]). They are to use 1 pharmacy and keep the clinic informed if they change pharmacies. Their responsibilities include making followup visits in a timely fashion and to avoid abrupt discontinuation of medication usage. Their responsibilities further include bringing their medications (bottles from the pharmacy with residual pills) to the visit for possible confirmation of pill counts and the patient understands it is their responsibility to submit to random drug screens to ensure both that the medications prescribed are present, and that no other controlled substances are present. All prescriptions provided today were generated electronically. PLAN: 1. We discussed treatment options with the patient today. Our goal is to continue to taper his opioid medications. He has been at 135 tablets for 2 months. We will continue this for 1 month and at that time, I instructed him we will decrease to 120 per month of his oxycodone . At that time, his morphine milliequivalent will be 60 MMEs. The patient is not happy with this decrease but understanding, his original goal was to be off all of his opioid medications. We have tapered him very slowly. 2. The patient is requesting to stop his tizanidine and alprazolam and start Valium as a muscle relaxant, which that will also help with some of his anxiety. I explained to him that Dr. Valdes is a doctor that does prescribes his alprazolam. We will call him to discuss this with him. His fill was on 09/01/2019, so he is due to fill this in a couple of weeks. We will attempt to call him today and discuss this prior to his next appointment. No scripts given for diazepam or tizanidine today. 3. The patient will be seen in 1 month. We will at that time continue to adjust his medications. The patient is seen today in collaboration with Dr. Marcelo Alba who is covering for Dr. Monroy. <ELECTRONICALLY SIGNED> By: Grace Hines 09/22/19 1324 [id number] 1434 Grace Hines /rogerio
== END ==
LOC: PAIN 06:47
PROVIDERS: ATTEND Clinical Nurse Specialist Adult Health
DX: G89.4 Chronic pain syndrome (principal); M54.5 Low back pain; M79.605 Pain in left leg; M25.571 Pain in right ankle and joints of right foot; M12.861 Other specific arthropathies, not elsewhere classified, right knee; M12.812 Other specific arthropathies, not elsewhere classified, left shoulder; M12.811 Other specific arthropathies, not elsewhere classified, right shoulder; M12.871 Other specific arthropathies, not elsewhere classified, right ankle and foot; F11.20 Opioid dependence, uncomplicated; Z88.2 Allergy status to sulfonamides; Z79.899 Other long term (current) drug therapy

== ENCOUNTER → 2019-10-16 | Outpatient (CLI) | payer OTHER, MEDICARE ==
[~2019-10-16] VITALS: Ht 175.3 cm; Wt 71.4 kg
[~2019-10-16] MED LIST changes: +ENDOCET 10-3251 EACH PO; +NORVASC2.5 M1 PO
--- NOTE | ~2019-10-16 | HPC ---
[facility] [place] [address] [place] [address] PAIN MANAGEMENT CONSULTATION Name: TANISHA MAHER Room #: REG [facility].#: [id number] Admission: 10/16/19 Attend Phys: Davon Monroy MD Discharge: Date of : 56 Report #: [id number] THIS REPORT FOR: cc: Amrit Valdes James E DO Morgan, Richard L. MD ~ CC: AMRIT Justin DATE OF SERVICE: 10/16/2019 CHIEF COMPLAINT: Chronic pain. We see the patient on a monthly intervals, he has severe pain with multiple pain generators including chronic low back pain, chronic lower extremity pain with phantom limb and ongoing right ankle pain. He had his ankle fused earlier this summer and continues to cause a fair amount of discomfort. His worst pain is in the ankle. He describes it today as a sharp, stabbing, shooting pain scores as an 8/10. PQRS: Positive for diffuse osteoarthritis involving neck and shoulders. His BMI is 23.5. Vital signs, blood pressure 160/97, heart rate 68, respirations 14, and O2 sat 99. Pain intensity is 8/10. He needs help standing or walking. He has an above-knee amputation on the left. He is in a wheelchair. He has not fallen with transfers. Currently, he is not on blood thinners. Does have a history of hypertension, under treatment. He has been on an opioid agreement through our clinic since 05/2018. Urine drug screens have been performed to check for medication. There have been no unexpected entries. He denies use of tobacco or alcohol. He does use alprazolam for sleep and Dr. Valdes provides that for him. There is some concern obviously about the combination of high dose opioids above 50 morphine milligram equivalents with the benzodiazepine. He has, however, been on it for some time and there is no evidence that has caused any over sedation. He has had no hospital admissions for overdose. He is also on dextroamphetamine provided by his psychiatrist for ADHD. We discussed polypharmacy today in some of my concerns. PHYSICAL EXAMINATION: GENERAL: Color is poor. He has always been pale. HEENT: Pupils are equal, round, reactive to light. CHEST: Clear. MUSCULOSKELETAL: Shows above-knee amputation on the left. Right ankle has a lateral scar with local tenderness and edema. No evidence of infection. IMPRESSION: 1. Chronic intractable pain syndrome with multiple pain generators. [address] [address] PAIN MANAGEMENT CONSULTATION Name: TANISHA MAHER Room #: REG [facility] MinervaDagmar#: [id number] Admission: 10/16/19 Attend Phys: Davon Monroy MD Discharge: Date of : 56 Report #: [id number] 2. Severe pain, right ankle, status post fusion. 3. Management of high risk opioid medications under terms of written agreement. RECOMMENDATIONS: We will continue to taper him slightly today to 4 tablets per day of oxycodone 10/325. This will be 60 morphine milligram equivalents. Our goal is to get him below 50. In order to provide co-analgesia, I felt that he might at this point in time be able to use topical diclofenac and I have given him instructions to supervisor electronic coils lenp-aig-fazxfkj Voltaren gel 1% applied 4 times daily to the ankle with gentle massage. I think that should be helpful as he has inflammatory changes during the healing of his fusion. It is quite likely that this will provide substantial pain relief for him using combination with the opioid. We talked about safeguarding his medications. I have reviewed his prescription drug monitoring program information and we have had a long discussion today about benzodiazepines and opioids. While he is tolerating them well, there is some risk to him. Myolaxin spray is available at home and I discussed the use of that at prior visits with his significant other. Followup visit is scheduled in 1 month. By: [id number] Davon Monroy MD /nt
[2019-10-16 10:52] VITALS: BP 100/62
--- NOTE | 2019-10-16 11:18 | NUR ---
Pain Clinic Assessment: 1. History of Osteoarthritis: NECK SHOULDERS BACK History of Rheumatoid Arthritis: Not Applicable 2. Height: 5 ft. 9 in. 175.3 cm. Weight: 157.4 lb. oz. 71.396 kg. Patient's BMI: 23.2 3. Vital Signs: BP: 100/62 Pulse: 76 Resp: 16 Temp: 02 Sat: 99 ECG Mon: 4. Pain Intensity: 7 5. Fall Risk: Dizziness: N Needs help standing or walking: Y Fallen in the last 3 months: N Fall risk comments: WHEEL CHAIR 6. Patient on Blood Thinner: None 7. History of Hypertension: Y 8. Opioid Therapy greater than 6 weeks: Y Opiate Contract Signed: 06/06/18 9. Risk Assessment Tool Provided: LOW RISK 02/14 10. Functional Assessment Tool: 11. Recreational Drug Use: Never Drug Type: Tobacco Use: Never Smoker Tobacco Type: Amount or Packs/day: How Many Years: Alcohol Use: No Frequency: Quant:
== END ==
LOC: PAIN 06:53
PROVIDERS: ATTEND Anesthesiology Pain Medicine
DX: G89.4 Chronic pain syndrome (principal); M25.571 Pain in right ankle and joints of right foot; F11.20 Opioid dependence, uncomplicated

== ENCOUNTER → 2019-11-13 | Outpatient (CLI) | payer OTHER, MEDICARE ==
[~2019-11-13] VITALS: Ht 175.3 cm; Wt 70.3 kg
[2019-11-13 10:18] VITALS: BP 126/85
--- NOTE | 2019-11-13 10:25 | NUR ---
Pain Clinic Assessment: 1. History of Osteoarthritis: NECK SHOULDERS BACK History of Rheumatoid Arthritis: Not Applicable 2. Height: 5 ft. 9 in. 175.3 cm. Weight: 155.0 lb. oz. 70.308 kg. Patient's BMI: 22.9 3. Vital Signs: BP: 126/85 Pulse: 99 Resp: 18 Temp: 02 Sat: 99 ECG Mon: 4. Pain Intensity: 8 5. Fall Risk: Dizziness: N Needs help standing or walking: N Fallen in the last 3 months: N Fall risk comments: WHEEL CHAIR 6. Patient on Blood Thinner: None 7. History of Hypertension: Y 8. Opioid Therapy greater than 6 weeks: Y Opiate Contract Signed: 06/06/18 9. Risk Assessment Tool Provided: LOW RISK 02/14 10. Functional Assessment Tool: 11. Recreational Drug Use: Never Drug Type: Tobacco Use: Never Smoker Tobacco Type: Amount or Packs/day: How Many Years: Alcohol Use: No Frequency: Quant:
--- NOTE | 2019-11-17 07:30 | HPC ---
[facility] [address] [place] [address] PAIN MANAGEMENT CONSULTATION Name: TANISHA MAHER Room #: REG [facility] Glenn#: [id number] Admission: 11/13/19 Attend Phys: Grace Hines Discharge: Date of : 56 Report #: [id number] CC: Grace Monroy MD DATE OF SERVICE: 11/13/2019 CHIEF COMPLAINT: Chronic low back pain, chronic lower extremity pain with paresthesias, ongoing right ankle pain. HISTORY OF PRESENT ILLNESS: This is a 59-year-old gentleman who returns to the pain clinic today with his for refills of his medication. He continues to have ongoing phantom limb pain in his left leg and ongoing right foot and ankle pain from a previous fracture and surgery that was fused earlier this year. He does have ongoing neck and shoulder issues as well. Today, he is describing his pain as quite high at 8/10. It is a sharp, burning, shocking feeling in his left leg as well as his ankle. He reports any activity of walking on his leg does increase his pain. He believes that normally his medication and elevating his right leg have been beneficial, though today he is complaining of significant increase. The patient has not tried the Voltaren gel that Dr. Monroy encouraged him to trial on his right ankle since his last visit a month ago. Today, the patient is also stating that he would like to return to Valium instead of alprazolam, which he takes for his ongoing anxiety issues. He feels that that is a better medication for him and helps as a muscle relaxant as well. He feels that tizanidine, which have been beneficial in the past, is ineffective currently. ALLERGIES: CODEINE AND SULFA. CURRENT LIST OF MEDICATIONS: Tizanidine, oxycodone 10/325 q.i.d., amlodipine, Narcan, carvedilol, Wellbutrin, Lovaza, metformin, Neurontin, Xanax, lisinopril, colestipol, levothyroxine. PQRS: 1. He has diffuse osteoarthritis involving his neck, shoulder and ankle. Denies any rheumatoid arthritis. 2. Height is 5 feet 9 inches, weight is 155, BMI is 22. 3. Vital signs; blood pressure 126/85, pulse is 99, respirations 18, oxygen sat is 99%. Pain score is 8/10. 4. Fall risk. Denies dizziness. Does need assistance in walking. He is in a wheelchair today. He has not fallen in the last 3 months. The patient is not on any blood thinners, but does take medicine for hypertension. His opioid therapy is greater than 6 weeks; therefore, an opioid signed contract is on the chart. 5. His risk assessment is low. Functional assessment is 49/70. 6. Recreational drug use, he denies. He is not a smoker and does not drink alcohol. According to the prescription monitoring system, he is filling his medications appropriately. His morphine mEq according to the CDC guidelines is 60 MMEs. He does take dextroamphetamine as well as benzodiazepine, which have been controlled by his other physicians filling in a timely fashion. He does have a prescription for Narcan at home in his possession though we do not see the need for ____ in case of an emergency. The patient has been stable on these medicines for quite some time. PHYSICAL EXAMINATION: GENERAL: This is an alert and orientated 59-year-old who appears his stated age, rating his pain score at 9/10 today, slightly pale in color on the lack of being outside. HEENT: Normocephalic and atraumatic. Extraocular eye muscles are intact. He is wearing a mask and glasses. MUSCULOSKELETAL: Pain is [id number]-[id number] amputation on the left. His right ankle has a scar with local tenderness and 1+ edema. He is in a wheelchair today. IMPRESSION: 1. Chronic intractable pain syndrome with multiple pain generators. 2. Severe pain in right ankle, status post fusion. 3. Phantom limb pain of his left lower extremity. 4. Opioid medication management under terms of written agreement tapering dose due to polypharmacy. We reviewed the fact that opiate medications are being used to provide analgesia adequate to support activities of daily living, not attempting to achieve a specific pain score on the 0-10 Visual Analog Scale. The current opiate medications are providing sufficient analgesia to allow the patient to participate in activities of daily living. The patient is not exhibiting any aberrant behavior suggestive of drug diversion. The patient is not having any adverse reactions to medications. The patient is not suffering from daytime somnolence or mental acuity changes. The patient is managing opiate-induced constipation with appropriate mgvg-riu-hzszocf agents and dietary considerations. The patient was counseled on concern for caution with operating a motor vehicle while using opiate medications. A physical exam was performed and the patient's functional status was evaluated. All patients with back pain were advised against the bed rest greater than 4 days and were advised to return to normal activities. Pain score assessment was noted and the treatment plan was reviewed with the patient. All current medications, both prescribed and OTC were reviewed and reconciled on the electronic medical record. Tobacco screening was accomplished and smoking cessation was advised when indicated. BMI was noted and diet/exercise modification was recommended for all patients following outside normal parameters. I reviewed with the patient today their responsibilities to safeguard prescription medications, reviewed their responsibility to utilize medications only as prescribed by the physician. They are to seek and receive pain medications only from 1 physician group ( [facility]). They are to use 1 pharmacy and keep the clinic informed if they change pharmacies. Their responsibilities include making followup visits in a timely fashion and to avoid abrupt discontinuation of medication usage. Their responsibilities further include bringing their medications (bottles from the pharmacy with residual pills) to the visit for possible confirmation of pill counts and the patient understands it is their responsibility to submit to random drug screens to ensure both that the medications prescribed are present, and that no other controlled substances are present. All prescriptions provided today were generated electronically. PLAN: 1. We discussed treatment options with the patient today. The patient was tapered from five tablets to four at his last visit. The patient does report that it was a rough month. We will continue him on current 4 tablets a day for several more months for his body to adjust, our goal is to decrease him to below 50 morphine mEq per day. Scripts will be sent electronically by Dr. Davon Monroy for one month of oxycodone , #120. 2. I did discuss with the patient again regarding Valium and alprazolam. Dr. Valdes does write for his alprazolam, the patient is wanting to return Valium, explained that he cannot be on 2 different benzodiazepines. I have left a message with our office in the past. He reports going to have an appointment soon with this physician to discuss changes in his medication. I explained to him that we will continue to monitor his benzodiazepine use along with our opioids due to interactions, but we are not willing to write for either type of those medications. 3. The patient states he does not feel the tizanidine is helpful in relieving his muscle spasms that Valium is a better option. Again, I will have Dr. Valdes write his diazepam if that is what he deems appropriate. We will discontinue his tizanidine since it is ineffective. 4. We encouraged the patient to start diclofenac gel to his right ankle. It is available [id number]. Dr. Davon Monroy discussed this at his last appointment. I believe he will gain some pain relief by using this multiple times a day. His did reiterate she will look for it at the pharmacy and she picks up his opioid prescriptions. 5. The patient will return in 1 month. The patient seen today in collaboration with Dr. Monroy. <ELECTRONICALLY SIGNED> By: Grace Hines 11/17/19 0730 [id number] Grace Hines /nt
== END ==
LOC: PAIN 06:57
PROVIDERS: ATTEND Clinical Nurse Specialist Adult Health
DX: M25.571 Pain in right ankle and joints of right foot (principal); G89.4 Chronic pain syndrome; Z79.891 Long term (current) use of opiate analgesic

== ENCOUNTER → 2019-12-11 | Outpatient (CLI) | payer OTHER, MEDICARE ==
[~2019-12-11] VITALS: Ht 175.3 cm; Wt 70.3 kg
[2019-12-11 10:40] VITALS: BP 159/96
--- NOTE | 2019-12-11 10:54 | NUR ---
Pain Clinic Assessment: 1. History of Osteoarthritis: NECK SHOULDERS BACK RIGHT ANKLE History of Rheumatoid Arthritis: Not Applicable 2. Height: 5 ft. 9 in. 175.3 cm. Weight: 155.0 lb. oz. 70.308 kg. Patient's BMI: 22.9 3. Vital Signs: BP: 159/96 Pulse: 102 Resp: 16 Temp: 02 Sat: 98 ECG Mon: 4. Pain Intensity: 8 5. Fall Risk: Dizziness: N Needs help standing or walking: Y Fallen in the last 3 months: N Fall risk comments: WHEEL CHAIR 6. Patient on Blood Thinner: None 7. History of Hypertension: Y 8. Opioid Therapy greater than 6 weeks: Y Opiate Contract Signed: 06/06/18 9. Risk Assessment Tool Provided: LOW RISK 02/14 10. Functional Assessment Tool: 11. Recreational Drug Use: Never Drug Type: Tobacco Use: Never Smoker Tobacco Type: Amount or Packs/day: How Many Years: Alcohol Use: No Frequency: Quant:
--- NOTE | 2019-12-12 09:46 | HPC ---
[facility] [place] [address] PAIN MANAGEMENT CONSULTATION Name: TANISHA MAHER Room #: REG [facility] Elizabeth#: [id number] Admission: 12/11/19 Attend Phys: Grace Hines Discharge: Date of : 56 Report #: [id number] CC: Grace Morales MD DATE OF SERVICE: 12/11/2019 CHIEF COMPLAINT: Chronic low back pain, chronic lower extremity pain and paresthesias, ongoing right ankle pain. HISTORY OF PRESENT ILLNESS: This is a 59-year-old gentleman who returns to the pain clinic today to discuss his opioid medications. He is reporting that he is out of his medications again. This has been an ongoing problem that he take his medications too quickly and then is out for several days prior to coming to his appointment. Today, he reports he took all of his medications by 12/03/2019; therefore, his pain has significantly increased today. Rating his pain an 8/10, especially in his left phantom leg as well as his right ankle. He is reporting it as sharp, burning and occasional shocking sensation. He does continue to utilize his gabapentin for his nerve pain, but is here today wondering if he may have an increase in his opioid medication. The patient reports he has not followed up with Dr. Valdes who he reported to me he was seen soon after his early November visit. At that visit, he was asking Dr. Valdes about starting diazepam in place of his alprazolam. 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 The patient did briefly discuss if we had a referral to send him for a [facility] therapist. He had not seen eye to eye with his current therapist and is wondering about our recommendations for another one. ALLERGIES: CODEINE AND SULFA. CURRENT LIST OF MEDICATIONS: Oxycodone 10/325 p.r.n., Norvasc, carvedilol, Narcan, Wellbutrin, Lovaza, metformin, gabapentin, Zestril, colestipol, Synthroid, Tylenol Extra Strength. PQRS: 1. He has diffuse osteoarthritis involving his neck, shoulders, and ankles. Denies rheumatoid arthritis. 2. Height is 5 feet 9 inches, weight is 155, BMI is 22. 3. Vital signs; blood pressure 159/96, pulse is 102, respirations 16, and oxygen sat is 98. 4. Pain score is 8/10. 5. Denies dizziness. Does use a wheelchair and is not ambulatory. Per his report, he has not fallen in the last 3 months. 6. The patient is not on any blood thinners, but does take medicine for hypertension. 7. Opioid therapy is greater than 6 weeks; therefore, an opioid signed contract is on the chart. Risk assessment is low. Functional assessment is 49/70. 8. Recreational drug use, he denies. He is not a smoker and does not drink alcohol. According to the prescription monitoring system, he is due to fill his opioid medications tomorrow. We give him a 30-day supply of his medications. He does take dextroamphetamine that was not listed on his drug list, filling those on a regular basis as well. His morphine milliequivalent is 64 MME per day according to the CDC guidelines. There is a random drug screen on the chart that we will recheck this at his next visit. PHYSICAL EXAMINATION: GENERAL: This is alert and orientated, slightly depressed and anxious 59-year-old gentleman who is rating his pain score of an 8/10. HEENT: Normocephalic, atraumatic. Extraocular eye muscles are intact. He is wearing a mask. MUSCULOSKELETAL: Pain is on the left leg above the knee of his amputation as well as his right outer aspect of his ankle with localized tenderness and 1+ edema. He is in a wheelchair today. He has well-healed scars in his right ankle. He is not wearing his left leg prosthesis. IMPRESSION: 1. Chronic pain syndrome with multiple pain generators including phantom limb pain on his left lower extremity. 2. Severe arthropathies of the right knee, bilateral shoulders, right foot and ankle. 3. Opioid misuse syndrome. 4. Opioid medication management under terms of written agreement. 5. Phantom limb pain of his left lower extremity. We reviewed the fact that opiate medications are being used to provide analgesia adequate to support activities of daily living, not attempting to achieve a specific pain score on the 0-10 Visual Analog Scale. The current opiate medications are providing sufficient analgesia to allow the patient to participate in activities of daily living. The patient is not exhibiting any aberrant behavior suggestive of drug diversion. The patient is not having any adverse reactions to medications. The patient is not suffering from daytime somnolence or mental acuity changes. The patient is managing opiate-induced constipation with appropriate ocac-hso-fdnjhlj agents and dietary considerations. The patient was counseled on concern for caution with operating a motor vehicle while using opiate medications. PLAN: 1. We reviewed several options with this patient today. I explained to him that he came to our clinic requesting to wean off his opioid medications, which we did agree to do, weaning him down slowly which we have done. Though despite our efforts he does continue to take all of his medication prior to his 30 days, therefore putting himself into withdrawal and suffering for several days. I encouraged the patient to take his medications as prescribed taking 4 tablets a day to help prevent this "yo-yo effect" that he has with withdrawal or good pain control. The patient does verbalize understanding. He states at times he does have increased pain; therefore, he overuses his medication. We discussed that he does need to use alternative methods to help some of his pain, whether that may be biofeedback, relaxation techniques. I did discuss Tanazumab injection for pain control once it is on the market instead of pill mediciation for pain. 2. We did discuss his wish to find a [facility] psychologist or therapist. I do not have the resources to find such person, but I encouraged him to talk to a [facility] to see if they have resources or to google it online, if that is the type of therapist he wishes to see. 3. We did explain to him that his medicine will be released tomorrow and he may pick it up then and encouraged him to take one tablet 4 times a day max. 4. We discussed adjunctive therapy. In the past the patient had taken tizanidine. He wished to stop that medication. He felt that was not beneficial. We encouraged him to continue his gabapentin, which he does get from Dr. Valdes. He is seeing him next week. At that time, he will discuss Valium with him. He had taken alprazolam in the past. We did caution him on these benzodiazepines and opioid combination. Patient reports that Valium does help with his muscle spasms and he has an appointment on Sunday to discuss this further with Dr. Valdes. 5. We did discuss another adjunct therapy of nonsteroidal anti-inflammatories. The patient reports he is unable to take this class of medications due to the hospitalist told him in February when he broke his ankle, not to take any NSAIDs. I explained to him that may have to do with the healing process in the initial surgical phase. He does have an appointment with orthopedist on Sunday and to approach that subject again. 6. The patient is seen in collaboration with Dr. Davon Monroy who did send one month of his medications electronically. The patient will return in 1 month. Hopefully at that time, we will have Dr. Valdes's dictation from his previous visit. <ELECTRONICALLY SIGNED> By: Grace Hines 12/12/19 0946 [id number] Grace Hines /rogerio
== END ==
LOC: PAIN 06:51
PROVIDERS: ATTEND Clinical Nurse Specialist Adult Health
DX: G89.4 Chronic pain syndrome (principal); Z79.891 Long term (current) use of opiate analgesic

== ENCOUNTER → 2020-01-12 | Outpatient (CLI) | payer OTHER, MEDICARE ==
[~2020-01-12] VITALS: Ht 175.3 cm; Wt 71.2 kg
[~2020-01-12] MED LIST changes: +VALIUM10 MG PO
[2020-01-12 11:12] VITALS: BP 113/76
--- NOTE | 2020-01-12 11:44 | NUR ---
Pain Clinic Assessment: 1. History of Osteoarthritis: NECK SHOULDERS BACK RIGHT ANKLE History of Rheumatoid Arthritis: Not Applicable 2. Height: 5 ft. 9 in. 175.3 cm. Weight: 157.0 lb. oz. 71.215 kg. Patient's BMI: 23.2 3. Vital Signs: BP: 113/76 Pulse: 79 Resp: 16 Temp: 02 Sat: 97 ECG Mon: 4. Pain Intensity: 7 5. Fall Risk: Dizziness: N Needs help standing or walking: Y Fallen in the last 3 months: N Fall risk comments: WHEEL CHAIR 6. Patient on Blood Thinner: None 7. History of Hypertension: Y 8. Opioid Therapy greater than 6 weeks: Y Opiate Contract Signed: 06/06/18 9. Risk Assessment Tool Provided: LOW RISK 02/14 10. Functional Assessment Tool: 11. Recreational Drug Use: Never Drug Type: Tobacco Use: Never Smoker Tobacco Type: Amount or Packs/day: How Many Years: Alcohol Use: No Frequency: Quant:
--- NOTE | 2020-01-13 14:02 | HPC ---
[facility] [address] [place] [address] PAIN MANAGEMENT CONSULTATION Name: TANISHA MAHER Room #: REG [facility] Glenn#: [id number] Admission: 01/12/20 Attend Phys: Grace Hines Discharge: Date of : 56 Report #: [id number] THIS REPORT FOR: cc: Ahsan Valdes James E DO Hocker,Grace BROWN ~ CC: Grace Monroy MD DATE OF SERVICE: 01/12/2020 CHIEF COMPLAINT: Chronic low back pain, chronic lower extremity pain and paresthesias and ongoing right ankle pain. HISTORY OF PRESENT ILLNESS: This is a 59-year-old gentleman who returns to the pain clinic today for his monthly visit for his medications. Today, he is reporting a pain score of 7/10. He informs me he took his last pain pill on Sunday night. He feels like he did quite well, making his medication last almost to his appointment. The patient reports his most significant pain is in his right ankle as well as his left phantom limb pain. He does have ongoing neck and shoulder pain as well. He reports his pain is a sharp, burning and shocking sensation, worse with any activity or walking on his right leg, though he is in a wheelchair today as he always is for his visits. He believes that the medications are beneficial. He continues to report wanting to wean down on his medication, but is typically out a few days before his appointment each month. The patient feels like elevating his right leg is also beneficial. The patient started on Valium from Dr. Valdes, which we have been discussing for several months. Unfortunately, he has found diazepam is not as beneficial as he would like. 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 If that is not beneficial, then he will discuss this with Dr. Valdes possibly requesting to return to his alprazolam and tizanidine, which he had found not as effective as it had been initially. The patient again is requesting names of a therapist. He has been communicating with [facility] to try and find a [facility] therapist since he would like to change psychologist. He does believe he needs to talk with somebody about his ongoing thoughts. He does report not being suicidal, but is very depressed and feels that he needs to communicate with a therapist. ALLERGIES: CODEINE AND SULFA. CURRENT LIST OF MEDICATIONS: Diazepam 10 mg t.i.d., oxycodone 10/325 p.r.n., Norvasc, carvedilol, bupropion, omega 3, metformin, gabapentin, lisinopril, [address] [address] PAIN MANAGEMENT CONSULTATION Name: TANISHA MAHER Room #: REG [facility] Elizabeth#: [id number] Admission: 01/12/20 Attend Phys: Grace Hines Discharge: Date of : 56 Report #: [id number] colestipol, and Synthroid. PQRS: 1. He has arthritic changes in his neck, shoulder, back and ankle. Denies any rheumatoid arthritis. 2. Height is 5 feet 9 inches, weight is 157, BMI is 23. 3. Vital signs; blood pressure 113/76, pulse is 79, respirations 16, oxygen sat is 97%. 4. Pain score 7/10. 5. Denies dizziness. Does need assistance with walking, is in a wheelchair again today. He has not fallen. 6. The patient is not on any blood thinners, but does take medicine for hypertension. 7. Opioid therapy is greater than 6 weeks; therefore, an opioid signed contract is on the chart. Risk assessment is low. Functional assessment is 49/70. 8. Recreational drug use, he denies. He is not a smoker and does not drink alcohol. According to the prescription monitoring system, the patient is due to fill his medications and there is the prescription for diazepam that he is recently started from Dr. Valdes. He does understand the benzodiazepine and opioid risk and we have discussed this in great length. We will check a random drug screen at his next visit. His morphine milliequivalent is 60 MME. PHYSICAL EXAMINATION: GENERAL: This is alert and orientated, slightly depressed and anxious 59-year-old gentleman who is reporting a pain score of 7/10. He is well-developed, well-nourished. HEENT: Normocephalic, atraumatic. Extraocular eye muscles are intact. He is wearing a mask. MUSCULOSKELETAL: Pain in his right ankle. No swelling noted today. He is not wearing his left leg prosthesis. Pain sensation is in his left upper extremity. He is in a wheelchair today. He has tenderness in his neck and shoulder and are myofascial with multiple tenderness areas. IMPRESSION: 1. Chronic intractable pain with multiple pain generators including phantom limb and severe arthropathies right knee, bilateral shoulders and right ankle. 2. Opioid misuse syndrome. 3. Phantom limb pain in his left lower extremities. 4. Opioid medication management under terms of written agreement. We reviewed the fact that opiate medications are being used to provide analgesia adequate to support activities of daily living, not attempting to achieve a specific pain score on the 0-10 Visual Analog Scale. The current opiate medications are providing sufficient analgesia to allow the patient to [place] [address] [place] [address] PAIN MANAGEMENT CONSULTATION Name: TANISHA MAHER Room #: REG [facility] Elizabeth#: [id number] Admission: 01/12/20 Attend Phys: Grace Hines Discharge: Date of : 56 Report #: [id number] participate in activities of daily living. The patient is not exhibiting any aberrant behavior suggestive of drug diversion. The patient is not having any adverse reactions to medications. The patient is not suffering from daytime somnolence or mental acuity changes. The patient is managing opiate-induced constipation with appropriate aqsu-hxo-uamrnid agents and dietary considerations. The patient was counseled on concern for caution with operating a motor vehicle while using opiate medications. PLAN: 1. We discussed treatment options with the patient today. We will continue him on his oxycodone 10/325, allowing him 4 tablets a day. The patient's ultimate goal is to decrease and wean off his medications. At this point, we would like to decrease him to 90 tablets in a 30-day supply. The patient continues to utilize his medications prior to his 30 days. We will continue him on 4 a day currently to see if his pain does stabilize. We are hopeful to check a random drug screen in his next visit. If he is out before his appointment at his next monthly visit, then we will have him come randomly on a day for a drug screen that we choose. 2. We discussed a therapist again today. The patient has not been able to find a [facility] therapist, which he was requesting. He has been talking with [facility]. I did discuss talking to a clergy if he is not able to find a therapist that he likes or to follow up one more time with his current therapist since he is having depression. He reports not having suicidal thoughts. 3. The patient reports the diazepam is not helpful as he was hoping. He will discuss with Dr. Valdes returning to alprazolam and tizanidine. I encouraged him to see if there is a different brand of diazepam that may be more beneficial. The patient will do that at his next fill. 4. The patient will return in 1 month. Appointment will be made. The patient is seen today in collaboration with Dr. Monroy. <ELECTRONICALLY SIGNED> By: Grace Hines 01/13/20 1402 1326 0000 Grace Hines /nt
== END ==
LOC: PAIN 01-05 06:47
PROVIDERS: ATTEND Clinical Nurse Specialist Adult Health
DX: M54.5 Low back pain (principal); G89.29 Other chronic pain; M25.571 Pain in right ankle and joints of right foot; R20.2 Paresthesia of skin; F11.20 Opioid dependence, uncomplicated; M79.605 Pain in left leg; M12.861 Other specific arthropathies, not elsewhere classified, right knee; M12.812 Other specific arthropathies, not elsewhere classified, left shoulder; M12.811 Other specific arthropathies, not elsewhere classified, right shoulder; M12.871 Other specific arthropathies, not elsewhere classified, right ankle and foot; G54.6 Phantom limb syndrome with pain; Z88.8 Allergy status to other drugs, medicaments and biological substances; Z79.899 Other long term (current) drug therapy

== ENCOUNTER → 2020-02-09 | Outpatient (CLI) | payer OTHER, MEDICARE ==
[~2020-02-09] VITALS: Ht 175.3 cm; Wt 77.6 kg
[~2020-02-09] MED LIST changes: +ADDERALL XR 3030 MG PO; +LODINE400 M1 PO; +VACEPA PO
[2020-02-09 10:41] VITALS: BP 130/73
--- NOTE | 2020-02-09 10:50 | NUR ---
Pain Clinic Assessment: 1. History of Osteoarthritis: NECK SHOULDERS BACK RIGHT ANKLE History of Rheumatoid Arthritis: Not Applicable 2. Height: 5 ft. 9 in. 175.3 cm. Weight: 171.0 lb. oz. 77.565 kg. Patient's BMI: 25.2 3. Vital Signs: BP: 130/73 Pulse: 83 Resp: 16 Temp: 02 Sat: 97 ECG Mon: 4. Pain Intensity: 7 5. Fall Risk: Dizziness: N Needs help standing or walking: Y Fallen in the last 3 months: N Fall risk comments: WHEEL CHAIR 6. Patient on Blood Thinner: None 7. History of Hypertension: Y 8. Opioid Therapy greater than 6 weeks: Y Opiate Contract Signed: 06/06/18 9. Risk Assessment Tool Provided: LOW RISK 02/14 10. Functional Assessment Tool: 11. Recreational Drug Use: Never Drug Type: Tobacco Use: Never Smoker Tobacco Type: Amount or Packs/day: How Many Years: Alcohol Use: No Frequency: Quant:
--- NOTE | 2020-02-10 14:10 | HPC ---
[facility] [place] [address] [place] [address] PAIN MANAGEMENT CONSULTATION Name: TANISHA MAHER [id number] Admission: 02/09/20 Attend Phys: Grace Hines Discharge: Date of : 56 Report #: [id number] THIS REPORT FOR: cc: Ahsan Valdes James E DO Hocker,Grace BROWN ~ DATE OF SERVICE: 02/09/2020 CC: Dr Davon Monroy MD CHIEF COMPLAINT: Chronic low back pain, lower extremity pain and paresthesias, ongoing right ankle pain. HISTORY OF PRESENT ILLNESS: This is a 59-year-old patient who returns to the clinic today to discuss his opioid medication. He continues to take oxycodone 10/325 on a daily basis. The plan was to decrease him to 90 tablets this month as per his request. He would like to wean off his medications, though he has been having difficulty transitioning to 120 tablets per month, occasionally taking all of his medications before his 30 days are up; therefore, putting himself into withdrawal symptoms several times in the past few months. Today, the patient complains of pain of 7/10, reports it to be a sharp, burning sensation in his left phantom leg, pain and ongoing right ankle pain. He believes any activity and ambulation or weight on his leg that causes increased pain. He believes that the medications are somewhat beneficial, though he would like to take more medications or wondering if there are any other options for him for better pain control. The patient is here present today with his . He has reported that he has not tried alternative Valium brands that we had discussed last visit. He believes the diazepam and his current brand was not as effective as another brand was. He also is not participating in any activity at home or exercises and has gained about 10 pounds since his last weight. ALLERGIES: CODEINE AND SULFA. CURRENT LIST OF MEDICATIONS: Oxycodone 10/325 four times a day, Valium p.r.n., Adderall, amlodipine, carvedilol, bupropion, Vascepa, metformin, gabapentin, lisinopril, colestipol, and levothyroxine. PQRS: 1. He has osteoarthritis in his neck, shoulders, back and ankle. Denies rheumatoid arthritis. 2. Height is 5 feet 9 inches, weight is 171, BMI is 25. 3. Vital signs 130/73, pulse is 83, respirations 16, oxygen sat is 97%. 4. Pain score is 7/10. 5. Denies dizziness. Does need assistance with ambulation. He is in a wheelchair today and reports no falls in the last [address] [address] PAIN MANAGEMENT CONSULTATION Name: TANISHA MAHER Room #: REG [facility] Elizabeth#: [id number] Admission: 02/09/20 Attend Phys: Grace Hines Discharge: Date of : 56 Report #: [id number] 6. The patient is not on any blood thinners, but does take medicine for hypertension. Opioid therapy is greater than 6 weeks; therefore, an opioid signed contract is on the chart. Risk assessment is low. Functional assessment is 49/70. 7. Recreational drug use, he denies. He is not a smoker and does not drink alcohol. According to the prescription monitoring system, the patient is filling in a timely fashion, though reports out of his medication. We will check a random drug screen on this patient today. His morphine mEq according to the CDC guidelines is 60. PHYSICAL EXAMINATION: GENERAL: This is alert and orientated, slightly depressed 59-year-old gentleman who appears stated age, rating his pain score at 7/10 today. He is well-developed, well-nourished, in a wheelchair. HEENT: Normocephalic, atraumatic. Extraocular eye muscles are intact. He is wearing a mask. MUSCULOSKELETAL: Examination of the spine is normal alignment. No scarring. 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 He is tender to light touch on his left leg. IMPRESSION: 1. Chronic intractable pain with multiple pain generators including phantom limb pain. 2. Severe arthropathies of the right knee, bilateral shoulders and ankle. 3. Opioid misuse syndrome. 4. Phantom limb pain in his right lower extremity with neuropathy. 5. Opioid medication management under terms of written agreement. 6. Depression. We reviewed the fact that opiate medications are being used to provide analgesia adequate to support activities of daily living, not attempting to achieve a specific pain score on the 0-10 Visual Analog Scale. The current opiate medications are providing sufficient analgesia to allow the patient to participate in activities of daily living. The patient is not exhibiting any aberrant behavior suggestive of drug diversion. The patient is not having any adverse reactions to medications. The patient is not suffering from daytime somnolence or mental acuity changes. The patient is managing opiate-induced constipation with appropriate vefx-jzs-yscubpp agents and dietary considerations. The patient was counseled on concern for caution with operating a motor vehicle while using opiate medications. A physical exam was performed and the patient's functional status was evaluated. All patients with back pain were advised against the bed rest greater than [address] [address] PAIN MANAGEMENT CONSULTATION Name: TANISHA MAHER Room #: REG [facility]#: [id number] Admission: 02/09/20 Attend Phys: Grace Hines Discharge: Date of : 56 Report #: [id number] days and were advised to return to normal activities. Pain score assessment was noted and the treatment plan was reviewed with the patient. All current medications, both prescribed and OTC were reviewed and reconciled on the electronic medical record. Tobacco screening was accomplished and smoking cessation was advised when indicated. BMI was noted and diet/exercise modification was recommended for all patients following outside normal parameters. I reviewed with the patient today their responsibilities to safeguard prescription medications, reviewed their responsibility to utilize medications only as prescribed by the physician. They are to seek and receive pain medications only from 1 physician group ( [facility]). They are to use 1 pharmacy and keep the clinic informed if they change pharmacies. Their responsibilities include making followup visits in a timely fashion and to avoid abrupt discontinuation of medication usage. Their responsibilities further include bringing their medications (bottles from the pharmacy with residual pills) to the visit for possible confirmation of pill counts and the patient understands it is their responsibility to submit to random drug screens to ensure both that the medications prescribed are present, and that no other controlled substances are present. All prescriptions provided today were generated electronically. PLAN: 1. We discussed treatment options with the patient today. His goal was to decrease his medication slowly and to taper off. This is what we have been attempting to do for several months. We have reduced him from 180 tablets per month to 120. He had done fairly well on his decrease but seems that he has plateaued at 120 pills. Our plan was to decrease to 90 today, but we will continue him on oxycodone 10/325 for another month. This was discussed with Dr. Davon Monroy who did see the patient as well today. Scripts will be sent electronically for 1 month. We did discuss several long-acting medications that may be more beneficial in helping him control his pain more evenly throughout the day. The patient reports he was on fentanyl patches postoperatively, but only for a short duration. He believes he was on methadone as well, but unsure why he has stopped that from a previous pain physician. We also discussed OxyContin and morphine tablets as a possible long-acting medication. I believe methadone with NMDA receptor may help with his phantom limb neuropathic pain, most effectively. We will discuss this at his next appointment. 2. We will have him start his etodolac 400 mg that he has at home. He was instructed for several months to call his orthopedic to verify that he may take that medication post his fusion. He has failed to do this, but after discussion with Dr. Monroy, I believe since that has been greater than 6 months since any surgery in his ankle that he may benefit from the nonsteroidal anti-inflammatories and adjunct treatment to help relieve some of his overall [address] [address] PAIN MANAGEMENT CONSULTATION Name: TANISHA MAHER Room #: REG [facility] Elizabeth#: [id number] Admission: 02/09/20 Attend Phys: Grace Hines Discharge: Date of : 56 Report #: [id number] discomfort. The patient instructed to call if he does need additional pills called in. 3. The patient did voice depressive thoughts. He is seeing a counselor and does take antidepressant medication. We encouraged him to speak with a counselor soon. He has been very worried about COVID and staying home. This has caused more depression for him and encouraged him to seek newspaper delivery counselor. 4. The patient will return in 1 month. We did collect a random drug screen today and Dr. Monroy did collaborate and see the patient as well. He will follow up in 1 month. <ELECTRONICALLY SIGNED> By: Grace Hines 02/10/20 1410 1237 39 Grace Hines /nt
== END ==
LOC: PAIN 06:59
PROVIDERS: ATTEND Clinical Nurse Specialist Adult Health
DX: M54.5 Low back pain (principal); R20.2 Paresthesia of skin; M25.571 Pain in right ankle and joints of right foot; G89.4 Chronic pain syndrome; M17.11 Unilateral primary osteoarthritis, right knee; F11.20 Opioid dependence, uncomplicated; F32.9 Major depressive disorder, single episode, unspecified; G62.9 Polyneuropathy, unspecified; M19.011 Primary osteoarthritis, right shoulder; M19.012 Primary osteoarthritis, left shoulder

== ENCOUNTER → 2020-03-11 | Outpatient (CLI) | payer OTHER, MEDICARE ==
[~2020-03-11] VITALS: Ht 175.3 cm; Wt 73.5 kg
[2020-03-11 09:21] VITALS: BP 157/96
--- NOTE | 2020-03-11 09:37 | NUR ---
Pain Clinic Assessment: 1. History of Osteoarthritis: NECK SHOULDERS BACK RIGHT ANKLE History of Rheumatoid Arthritis: Not Applicable 2. Height: 5 ft. 9 in. 175.3 cm. Weight: 162.0 lb. oz. 73.483 kg. Patient's BMI: 23.9 3. Vital Signs: BP: 157/96 Pulse: 86 Resp: 14 Temp: 02 Sat: 100 ECG Mon: 4. Pain Intensity: 8 5. Fall Risk: Dizziness: N Needs help standing or walking: Y Fallen in the last 3 months: N Fall risk comments: WHEEL CHAIR 6. Patient on Blood Thinner: None 7. History of Hypertension: Y 8. Opioid Therapy greater than 6 weeks: Y Opiate Contract Signed: 06/06/18 9. Risk Assessment Tool Provided: LOW RISK 02/14 10. Functional Assessment Tool: 11. Recreational Drug Use: Never Drug Type: Tobacco Use: Never Smoker Tobacco Type: Amount or Packs/day: How Many Years: Alcohol Use: No Frequency: Quant:
== END ==
LOC: PAIN 03-08 06:51
PROVIDERS: ATTEND Anesthesiology Pain Medicine
DX: G89.4 Chronic pain syndrome (principal); M19.90 Unspecified osteoarthritis, unspecified site; F32.9 Major depressive disorder, single episode, unspecified; F11.20 Opioid dependence, uncomplicated

== ENCOUNTER → 2020-04-12 | Outpatient (CLI) | payer OTHER, MEDICARE ==
[~2020-04-12] MED LIST changes: +[UNRECOGNIZED DRUG - CODE] PO
--- NOTE | 2020-04-13 08:16 | HPC ---
[facility] [place] [address] [place] [address] PAIN MANAGEMENT CONSULTATION Name: TANISHA MAHER Room #: REG [facility] Elizabeth#: [id number] Admission: 04/12/20 Attend Phys: Grace Hines Discharge: Date of : 56 Report #: [id number] THIS REPORT FOR: cc: Ahsan Valdes James E DO Hocker,Grace BROWN ~ DATE OF SERVICE: 04/12/2020 CHIEF COMPLAINT: Phantom limb pain, chronic neuropathic pain. HISTORY OF PRESENT ILLNESS: This is a telemedicine appointment that I am speaking with the patient from 9:40-10:00. The patient has consented for this appointment. He is sick at home today. This is a 59-year-old gentleman, who I am speaking via the telephone today. The patient had missed 2 appointments, one last week and then again this morning, so we are doing a Telemedicine appointment. He has been sick with stomach issues. He also reports significant aches and pains. He denies any fever. He feels like he has flu. He was moaning in the background when his brought him the phone this morning, though he has not been checked for COVID or not seen a primary care doctor. He does report he has gallbladder issues, so that may be causing some of his stomach problems. Today, the patient is reporting a pain score of 5-6 currently, though it can be elevated later in the day in his left limb, which is his amputation leg. He does report the etodolac that he recently restarted has been beneficial. He is wondering if we would be able to write that medication for him. We had encouraged him to take an anti-inflammatory to help with his general aches and pains. The patient has found that it has been beneficial. His reports it was a 600 XL medication not the 400 b.i.d. that they had reported to us previously. He reports that his pain is a burning, shocking and stabbing sensation with any activity. He does report he is going to attempt to start school on 09/12/2020 and wants to decrease his pain pills to 60 tablets per month by that time. He has reported this in the past and we will attempt to get him to 60 per his request. ALLERGIES: CODEINE AND SULFA. CURRENT LIST OF MEDICATIONS: Endocet 10/325 four times a day, etodolac 600 mg daily, Adderall, Valium, Norvasc, carvedilol, bupropion, Vascepa, metformin, lisinopril, colestipol and Synthroid. PQRS: 1. He has arthritic changes in his neck, shoulder, back and ankle. Denies any rheumatoid arthritis. 2. Height, weight and vital signs were deferred due to a telemedicine [facility] [address] [place] [address] PAIN MANAGEMENT CONSULTATION Name: TANISHA MAHER Room #: REG [facility] Elizabeth#: [id number] Admission: 04/12/20 Attend Phys: Grace Hines Discharge: Date of : 56 Report #: [id number] appointment. Pain score is 5-6 today. He denies any dizziness. He usually is in a wheelchair per his report. He is in bed today. He is not on any blood thinners, but does take medicine for hypertension. Opioid therapy is greater than 6 weeks; therefore, an opioid signed contract is on the chart. Risk assessment is low. Functional assessment is 49/70. 3. Recreational drug use, he denies. He is not a smoker and does not drink alcohol. According to the prescription monitoring system, he was due to fill his medications this weekend. His morphine mEq is 60 MMEs. PHYSICAL EXAMINATION: Deferred due to a telemedicine appointment. GENERAL: He is alert and orientated, though at times confused, answering most of my questions. Reports feeling bad all over. Denies any fever. IMPRESSION: 1. Chronic pain syndrome with chronic low back pain and phantom limb pain. 2. Chronic arthropathy of the right knee, bilateral shoulder and ankle discomfort. 3. Depression. 4. Management of opioid medications under terms of written opioid agreement. We reviewed the fact that opiate medications are being used to provide analgesia adequate to support activities of daily living, not attempting to achieve a specific pain score on the 0-10 Visual Analog Scale. The current opiate medications are providing sufficient analgesia to allow the patient to participate in activities of daily living. The patient is not exhibiting any aberrant behavior suggestive of drug diversion. The patient is not having any adverse reactions to medications. The patient is not suffering from daytime somnolence or mental acuity changes. The patient is managing opiate-induced constipation with appropriate ixoc-rlb-mfdhtph agents and dietary considerations. The patient was counseled on concern for caution with operating a motor vehicle while using opiate medications. PLAN: 1. We discussed treatment options with the patient today. The patient is reed. We are doing a telemedicine appointment. We will send one month of his oxycodone 10/325, #120. The patient does report he is going to start school, which he has told us this for greater than one year, starting 09/12/2020. He would like to be at 60 tablets per month at that time. I explained to him that when we see him later this month for his next visit, we will decrease him to 90 tablets at his 05/10/2020 appointment, keep him at that level for several months. Then decrease him to 75 tablets for several months, and then by 09/13/2019, he should be at 60 pills of oxycodone 10/325. 2. I will send a prescription for etodolac 600 mg XL #30 with no refills. 3. The patient will return in one month to follow up. Appointment is made. [address] [address] PAIN MANAGEMENT CONSULTATION Name: TANISHA MAHER Room #: REG [facility] Glenn#: [id number] Admission: 04/12/20 Attend Phys: Grace Hines Discharge: Date of : 56 Report #: [id number] The patient's care is discussed with Dr. Davon Monroy, who collaborated the care today for this telemedicine appointment. <ELECTRONICALLY SIGNED> By: Grace Hines 04/13/20 0816 1049 1332 Grace Hines /rogerio
== END ==
LOC: PAIN 04-08 07:50 → TELEPC 06:44 → PAIN 06:44
PROVIDERS: ATTEND Clinical Nurse Specialist Adult Health
DX: G62.9 Polyneuropathy, unspecified (principal); G89.4 Chronic pain syndrome; M54.5 Low back pain; F32.9 Major depressive disorder, single episode, unspecified; F11.20 Opioid dependence, uncomplicated; M17.11 Unilateral primary osteoarthritis, right knee

== ENCOUNTER → 2020-05-06 | Outpatient (CLI) | payer OTHER, MEDICARE ==
[~2020-05-06] VITALS: Ht 175.3 cm; Wt 75.4 kg
[~2020-05-06] MED LIST changes: +CLONIDINE HCL0.1 MG PO; +NORVASC5 MG PO
--- NOTE | ~2020-05-06 | HPC ---
[facility] [place] [address] PAIN MANAGEMENT CONSULTATION Name: TANISHA MAHER Room #: REG [facility] Glenn#: [id number] Admission: 05/06/20 Attend Phys: Grace Hines Discharge: Date of : 56 Report #: [id number] THIS REPORT FOR: cc: Ahsan Valdes James E DO Hocker,Grace BROWN ~ DATE OF SERVICE: 05/06/2020 CHIEF COMPLAINT: Phantom limb pain, chronic neuropathic pain and right ankle pain. HISTORY OF PRESENT ILLNESS: As you know, this is a 59-year-old gentleman who continues to have pain related to his phantom limb on his left. Pain was significant neuropathic issue. He also complains of right ankle pain that is result of a recent fall and surgery. Today, the patient is reporting a pain score of 5/10. He feels that he is doing quite well and that is a good "pain number for him." He is more upbeat today and his affect is pleasant. Usually, he is more depressed. Today, he reports his pain is a burning, sharp shocking, stabbing sensation that is worse with activity. He is trying to walk a little more, but that does cause increasing pain in his right ankle. He is considering having his plate taken out of his right ankle after he has gotten his COVID vaccinations. We had encouraged the patient to restart an anti-inflammatory, which he had had in the past, is etodolac 600. He has restarted that and feels that has been beneficial in decreasing his pain as well. The patient plans to attend graduate school in the fall and again trying to work towards lowering his oxycodone dose and we are scheduled to decrease this medication today. ALLERGIES: CODEINE AND SULFA. CURRENT LIST OF MEDICATIONS: Clonidine 0.1 mg p.r.n., amlodipine 5 mg b.i.d., etodolac 600 mg daily, oxycodone 10/325 q.i.d., Adderall, Valium, ___, bupropion, Vascepa, metformin, gabapentin 1200 mg t.i.d., lisinopril, Colestid and levothyroxine. PQRS: 1. He has arthritic changes in his neck, shoulder, back and ankle. Denies any rheumatoid arthritis. 2. Height is 5 feet 9 inches, weight is 166, BMI is 24. 3. Vital Signs: 154/96, pulse is 101, respirations 18, oxygen sat is 94%. 4. Pain score is 5/10. 5. Denies dizziness, does need assistance with ambulation. He is in a wheelchair today. He reports no falling in the last 3 months. 6. He is not on any blood thinners, but does take medicine for hypertension. 7. Opioid therapy is greater than 6 weeks; therefore, an opioid signed contract [address] [address] PAIN MANAGEMENT CONSULTATION Name: GUNNARTANISHA Trent Room #: J LUIS Elizabeth#: [id number] Admission: 05/06/20 Attend Phys: Grace Hines Discharge: Date of : 56 Report #: [id number] is on the chart. Risk assessment is low. Functional assessment is 49/70. 8. Recreational drug use, he denies. He is not a smoker and does not drink alcohol. According to the prescription monitoring system, the patient is due to fill his medications tomorrow. His morphine mEq is 60 according to the CDC guidelines. He does take a benzodiazepine and is closely monitored. PHYSICAL EXAMINATION: GENERAL: This is alert and orientated more upbeat gentleman today, placing his current pain score at 5/10. HEENT: Normocephalic, atraumatic. Extraocular eye muscles are intact. 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 Right ankle pain is tender to the touch from previous surgery with a well-healed scar. IMPRESSION: 1. Chronic pain syndrome with chronic low back and phantom limb pain. 2. Chronic arthropathy with right knee pain and bilateral shoulder pain and ankle pain from previous surgery. 3. Depression. 4. Management of complicated scheduled opioid under written agreement. We reviewed the fact that opiate medications are being used to provide analgesia adequate to support activities of daily living, not attempting to achieve a specific pain score on the 0-10 Visual Analog Scale. The current opiate medications are providing sufficient analgesia to allow the patient to participate in activities of daily living. The patient is not exhibiting any aberrant behavior suggestive of drug diversion. The patient is not having any adverse reactions to medications. The patient is not suffering from daytime somnolence or mental acuity changes. The patient is managing opiate-induced constipation with appropriate xwmb-utm-adarnkj agents and dietary considerations. The patient was counseled on concern for caution with operating a motor vehicle while using opiate medications. PLAN: 1. We discussed treatment options with the patient today. First, we discussed the COVID vaccine. The patient would like to have this vaccination if gets COVID and we did discuss websites at various places where they may try to obtain this. Unfortunately, he is at the age they are not considering him for vaccines at this time in [place]. I encouraged the patient to keep an eye on the news on a daily basis as it does change. 2. The patient feels the etodolac has been beneficial in helping his arthritic issues. He continues to have right ankle pain and once he is vaccinated for COVID, he would like to have his plate removed that is on the list of things that he would like to accomplish the next year. [facility] [address] [place] [address] PAIN MANAGEMENT CONSULTATION Name: TANISHA MAHER Room #: REG BARAK Elizabeth#: [id number] Admission: 05/06/20 Attend Phys: Grace Hines Discharge: Date of : 56 Report #: [id number] 3. The patient continues to have planned to start graduate school in September; therefore, our discussion has been to taper him to no more than 60 tablets a day per his request. He is doing quite well on his current regimen relating his pain is very well controlled today, though we will decrease him to 90 tablets per 30 days per his request. I reminded the patient that the first month may be more difficult with increased pain days if need be, he may take Tylenol as needed, but to limit it to 3000 mg or less. Scripts will be sent by Dr. Davon Monroy who did see the patient as well today for Percocet , #90, for release 05/07 and 06/04. 4. The patient will return in 2 months. He will have seen his new primary care physician by that time. I encouraged him to discuss with them some erectile dysfunction issues he is having. We discussed that decreasing his opioids may help with that issue, but unfortunately he is still on a high dose of gabapentin that may have some underlying issues as well. Time spent with the patient in consultation, reviewing recent clinical notes and physician reports, physical examination and correlation of findings of medical documentation to determine possible treatments, 23 minutes. Time spent in preparation for appointment reviewing prescription monitoring system, reviewing previous records and proposed treatment options and reviewing current medications, 3 minutes. Time spent preparing and sending electronic prescriptions with collaborating physician, Dr. Davon Monroy documentation of visit and plan of treatment 7 minutes. Total time spent with the patient was 33 minutes. By: [id number] Grace Hines /rogerio
[2020-05-06 09:20] VITALS: BP 154/96
== END ==
LOC: PAIN 06:44
PROVIDERS: ATTEND Clinical Nurse Specialist Adult Health
DX: M25.571 Pain in right ankle and joints of right foot (principal); G62.9 Polyneuropathy, unspecified; M54.5 Low back pain; G89.4 Chronic pain syndrome; F32.9 Major depressive disorder, single episode, unspecified; F11.20 Opioid dependence, uncomplicated; Z79.899 Other long term (current) drug therapy

== ENCOUNTER → 2020-06-24 | Outpatient (CLI) | payer OTHER, MEDICARE ==
[~2020-06-24] VITALS: Ht 175.3 cm; Wt 73.5 kg
[~2020-06-24] MED LIST changes: +ASPIR-TRIN325 MG PO; +LOSARTAN POTAS100 MG PO; +NIACIN 500 MG500 M1 PO; +RED YEAST RICE600 M1 PO
[2020-06-24 10:58] VITALS: BP 159/100
--- NOTE | 2020-06-24 11:08 | NUR ---
Pain Clinic Assessment: 1. History of Osteoarthritis: NECK SHOULDERS BACK RIGHT ANKLE History of Rheumatoid Arthritis: Not Applicable 2. Height: 5 ft. 9 in. 175.3 cm. Weight: 162.0 lb. oz. 73.483 kg. Patient's BMI: 23.9 3. Vital Signs: BP: 159/100 Pulse: 80 Resp: 18 Temp: 02 Sat: 96 ECG Mon: 4. Pain Intensity: 7 5. Fall Risk: Dizziness: Y Needs help standing or walking: Y Fallen in the last 3 months: Y Fall risk comments: WHEEL CHAIR 6. Patient on Blood Thinner: None 7. History of Hypertension: Y 8. Opioid Therapy greater than 6 weeks: Y Opiate Contract Signed: 06/06/18 9. Risk Assessment Tool Provided: LOW RISK 02/14 10. Functional Assessment Tool: 11. Recreational Drug Use: Never Drug Type: Tobacco Use: Never Smoker Tobacco Type: Amount or Packs/day: How Many Years: Alcohol Use: No Frequency: Quant:
== END ==
LOC: PAIN 07:06
PROVIDERS: ATTEND Anesthesiology Pain Medicine
DX: M25.571 Pain in right ankle and joints of right foot (principal); I10 Essential (primary) hypertension; Z79.891 Long term (current) use of opiate analgesic; Z79.899 Other long term (current) drug therapy; Z88.5 Allergy status to narcotic agent; Z88.2 Allergy status to sulfonamides

== ENCOUNTER → 2020-07-22 | Outpatient (CLI) | payer OTHER, MEDICARE ==
[~2020-07-22] VITALS: Ht 175.3 cm; Wt 74.8 kg
[~2020-07-22] MED LIST changes: +BYSTOLIC10 MG PO
[2020-07-22 10:18] VITALS: BP 162/87
--- NOTE | 2020-07-22 10:29 | NUR ---
Pain Clinic Assessment: 1. History of Osteoarthritis: Not Applicable History of Rheumatoid Arthritis: Not Applicable 2. Height: 5 ft. 9 in. 175.3 cm. Weight: 165.0 lb. oz. 74.844 kg. Patient's BMI: 24.4 3. Vital Signs: BP: 162/87 Pulse: 72 Resp: 16 Temp: 02 Sat: 97 ECG Mon: 4. Pain Intensity: 5 5. Fall Risk: Dizziness: N Needs help standing or walking: N Fallen in the last 3 months: N Fall risk comments: WHEEL CHAIR 6. Patient on Blood Thinner: None 7. History of Hypertension: Y 8. Opioid Therapy greater than 6 weeks: N Opiate Contract Signed: 06/06/18 9. Risk Assessment Tool Provided: LOW 10. Functional Assessment Tool: 11. Recreational Drug Use: Never Drug Type: Tobacco Use: Never Smoker Tobacco Type: Amount or Packs/day: How Many Years: Alcohol Use: No Frequency: Quant:
== END ==
LOC: PAIN 07:08
PROVIDERS: ATTEND Clinical Nurse Specialist Adult Health
DX: G89.4 Chronic pain syndrome (principal); M54.5 Low back pain; M62.59 Muscle wasting and atrophy, not elsewhere classified, multiple sites; F32.9 Major depressive disorder, single episode, unspecified; Z79.899 Other long term (current) drug therapy; Z79.891 Long term (current) use of opiate analgesic

== ENCOUNTER → 2020-08-23 | Outpatient (CLI) | payer OTHER, MEDICARE ==
[~2020-08-23] VITALS: Ht 175.3 cm; Wt 73.0 kg
[~2020-08-23] MED LIST changes: +LIPITOR10 MG PO; +OZEMPIC0.25 MG/0.; +ROXICODONE5 M2 PO
[2020-08-23 08:43] VITALS: BP 150/94
--- NOTE | 2020-08-23 09:08 | NUR ---
Pain Clinic Assessment: 1. History of Osteoarthritis: Not Applicable History of Rheumatoid Arthritis: Not Applicable 2. Height: 5 ft. 9 in. 175.3 cm. Weight: 161.0 lb. oz. 73.029 kg. Patient's BMI: 23.8 3. Vital Signs: BP: 150/94 Pulse: 95 Resp: 16 Temp: 02 Sat: 97 ECG Mon: 4. Pain Intensity: 7 5. Fall Risk: Dizziness: N Needs help standing or walking: Y Fallen in the last 3 months: N Fall risk comments: WHEEL CHAIR 6. Patient on Blood Thinner: None 7. History of Hypertension: Y 8. Opioid Therapy greater than 6 weeks: N Opiate Contract Signed: 06/06/18 9. Risk Assessment Tool Provided: LOW 10. Functional Assessment Tool: 11. Recreational Drug Use: Never Drug Type: Tobacco Use: Never Smoker Tobacco Type: Amount or Packs/day: How Many Years: Alcohol Use: No Frequency: Quant:
== END ==
LOC: PAIN 07:12
PROVIDERS: ATTEND Clinical Nurse Specialist Adult Health
DX: G89.4 Chronic pain syndrome (principal); M54.5 Low back pain; G54.6 Phantom limb syndrome with pain; I10 Essential (primary) hypertension; F32.9 Major depressive disorder, single episode, unspecified; Z79.899 Other long term (current) drug therapy; Z79.891 Long term (current) use of opiate analgesic; Z88.5 Allergy status to narcotic agent; Z88.2 Allergy status to sulfonamides; Z79.82 Long term (current) use of aspirin

== ENCOUNTER → 2020-09-20 | Outpatient (CLI) | payer OTHER, MEDICARE ==
[~2020-09-20] VITALS: Ht 175.3 cm; Wt 73.0 kg
[~2020-09-20] MED LIST changes: +BUPRENORPHINE HC2 MG SUBLING
[2020-09-20 09:26] VITALS: BP 144/93
--- NOTE | 2020-09-20 10:02 | NUR ---
Pain Clinic Assessment: 1. History of Osteoarthritis: neck, shoulders, back and rt ankle, RIGHT KNEE History of Rheumatoid Arthritis: Not Applicable 2. Height: 5 ft. 9 in. 175.3 cm. Weight: 161.0 lb. oz. 73.029 kg. Patient's BMI: 23.8 3. Vital Signs: BP: 144/93 Pulse: 86 Resp: 16 Temp: 02 Sat: 98 ECG Mon: 4. Pain Intensity: 7 5. Fall Risk: Dizziness: N Needs help standing or walking: Y Fallen in the last 3 months: Y Fall risk comments: WHEEL CHAIR 6. Patient on Blood Thinner: None 7. History of Hypertension: Y 8. Opioid Therapy greater than 6 weeks: N Opiate Contract Signed: 06/06/18 9. Risk Assessment Tool Provided: LOW 10. Functional Assessment Tool: 11. Recreational Drug Use: Never Drug Type: Tobacco Use: Never Smoker Tobacco Type: Amount or Packs/day: How Many Years: Alcohol Use: No Frequency: Quant:
== END ==
LOC: PAIN 07:00
PROVIDERS: ATTEND Clinical Nurse Specialist Adult Health
DX: G89.4 Chronic pain syndrome (principal); M79.662 Pain in left lower leg; M54.5 Low back pain; M79.601 Pain in right arm; M17.11 Unilateral primary osteoarthritis, right knee; M19.011 Primary osteoarthritis, right shoulder; M19.012 Primary osteoarthritis, left shoulder; I10 Essential (primary) hypertension; F32.9 Major depressive disorder, single episode, unspecified; Z89.9 Acquired absence of limb, unspecified; Z88.5 Allergy status to narcotic agent; Z88.2 Allergy status to sulfonamides; Z79.891 Long term (current) use of opiate analgesic; Z79.899 Other long term (current) drug therapy

== ENCOUNTER → 2020-10-14 | Outpatient (CLI) | payer OTHER, MEDICARE ==
[~2020-10-14] VITALS: Ht 175.3 cm; Wt 68.5 kg
[~2020-10-14] MED LIST changes: +MORPHINE SULFAT15 MG PO
[2020-10-14 09:14] VITALS: BP 133/86
--- NOTE | 2020-10-14 09:36 | NUR ---
Pain Clinic Assessment: 1. History of Osteoarthritis: neck, shoulders, back and rt ankle, RIGHT KNEE History of Rheumatoid Arthritis: Not Applicable 2. Height: 5 ft. 9 in. 175.3 cm. Weight: 151.0 lb. oz. 68.493 kg. Patient's BMI: 22.3 3. Vital Signs: BP: 133/86 Pulse: 92 Resp: 14 Temp: 02 Sat: 97 ECG Mon: 4. Pain Intensity: 10 phantom pain 5. Fall Risk: Dizziness: N Needs help standing or walking: Y Fallen in the last 3 months: Y Fall risk comments: WHEEL CHAIR 6. Patient on Blood Thinner: None 7. History of Hypertension: Y 8. Opioid Therapy greater than 6 weeks: N Opiate Contract Signed: 06/06/18 9. Risk Assessment Tool Provided: LOW 10. Functional Assessment Tool: 11. Recreational Drug Use: Never Drug Type: Tobacco Use: Never Smoker Tobacco Type: Amount or Packs/day: How Many Years: Alcohol Use: No Frequency: Quant:
== END ==
LOC: PAIN 06:58
PROVIDERS: ATTEND Clinical Nurse Specialist Adult Health
DX: G54.6 Phantom limb syndrome with pain (principal); G89.4 Chronic pain syndrome; F32.9 Major depressive disorder, single episode, unspecified; I10 Essential (primary) hypertension; M25.571 Pain in right ankle and joints of right foot; M12.06 Chronic postrheumatic arthropathy [Jaccoud], knee; M12.01 Chronic postrheumatic arthropathy [Jaccoud], shoulder; Z79.899 Other long term (current) drug therapy; Z88.8 Allergy status to other drugs, medicaments and biological substances

== ENCOUNTER → 2020-10-25 | Outpatient (CLI) | payer OTHER, MEDICARE ==
[~2020-10-25] VITALS: Ht 175.3 cm; Wt 72.6 kg
[2020-10-25 09:20] VITALS: BP 127/78
--- NOTE | 2020-10-25 09:28 | NUR ---
Pain Clinic Assessment: 1. History of Osteoarthritis: neck, shoulders, back and rt ankle, RIGHT KNEE History of Rheumatoid Arthritis: Not Applicable 2. Height: 5 ft. 9 in. 175.3 cm. Weight: 160.0 lb. oz. 72.576 kg. Patient's BMI: 23.6 3. Vital Signs: BP: 127/78 Pulse: 99 Resp: 14 Temp: 02 Sat: 97 ECG Mon: 4. Pain Intensity: 6 5. Fall Risk: Dizziness: N Needs help standing or walking: Y Fallen in the last 3 months: N Fall risk comments: WHEEL CHAIR 6. Patient on Blood Thinner: None 7. History of Hypertension: Y 8. Opioid Therapy greater than 6 weeks: N Opiate Contract Signed: 06/06/18 9. Risk Assessment Tool Provided: LOW 10. Functional Assessment Tool: 11. Recreational Drug Use: Never Drug Type: Tobacco Use: Never Smoker Tobacco Type: Amount or Packs/day: How Many Years: Alcohol Use: No Frequency: Quant: Y
== END ==
LOC: PAIN 08:16
PROVIDERS: ATTEND Anesthesiology Pain Medicine
DX: G89.29 Other chronic pain (principal); M79.609 Pain in unspecified limb; F11.90 Opioid use, unspecified, uncomplicated; F41.8 Other specified anxiety disorders; Z79.84 Long term (current) use of oral hypoglycemic drugs; Z79.899 Other long term (current) drug therapy

== ENCOUNTER → 2020-11-08 | Outpatient (CLI) | payer OTHER, MEDICARE ==
[~2020-11-08] VITALS: Ht 175.3 cm; Wt 70.9 kg
[2020-11-08 10:05] VITALS: BP 148/95
--- NOTE | 2020-11-08 10:18 | NUR ---
Pain Clinic Assessment: 1. History of Osteoarthritis: neck, shoulders, back and rt ankle, RIGHT KNEE History of Rheumatoid Arthritis: Not Applicable 2. Height: 5 ft. 9 in. 175.3 cm. Weight: 156.4 lb. oz. 70.943 kg. Patient's BMI: 23.1 3. Vital Signs: BP: 148/95 Pulse: 84 Resp: 16 Temp: 02 Sat: 98 ECG Mon: 4. Pain Intensity: 8-9 this week 5. Fall Risk: Dizziness: N Needs help standing or walking: Y Fallen in the last 3 months: N Fall risk comments: WHEEL CHAIR 6. Patient on Blood Thinner: None 7. History of Hypertension: Y 8. Opioid Therapy greater than 6 weeks: N Opiate Contract Signed: 06/06/18 9. Risk Assessment Tool Provided: MARY 10. Functional Assessment Tool: 11. Recreational Drug Use: Never Drug Type: Tobacco Use: Never Smoker Tobacco Type: Amount or Packs/day: How Many Years: Alcohol Use: No Frequency: Quant:
== END ==
LOC: PAIN 07:04
PROVIDERS: ATTEND Clinical Nurse Specialist Adult Health
DX: G89.4 Chronic pain syndrome (principal); F32.9 Major depressive disorder, single episode, unspecified; F41.9 Anxiety disorder, unspecified; Z79.899 Other long term (current) drug therapy; Z79.891 Long term (current) use of opiate analgesic; Z72.89 Other problems related to lifestyle; Z88.5 Allergy status to narcotic agent; Z88.2 Allergy status to sulfonamides

== ENCOUNTER → 2020-11-09 | Outpatient (CLI) | payer OTHER, MEDICARE ==
[~2020-11-09] VITALS: Ht 175.3 cm; Wt 70.8 kg
[2020-11-09 11:24] VITALS: BP 140/76
--- NOTE | 2020-11-09 11:30 | NUR ---
Pain Clinic Assessment: 1. History of Osteoarthritis: neck, shoulders, back and rt ankle, RIGHT KNEE History of Rheumatoid Arthritis: Not Applicable 2. Height: 5 ft. 9 in. 175.3 cm. Weight: 156.0 lb. oz. 70.761 kg. Patient's BMI: 23.0 3. Vital Signs: BP: 140/76 Pulse: 91 Resp: 14 Temp: 02 Sat: 97 ECG Mon: 4. Pain Intensity: 7 5. Fall Risk: Dizziness: N Needs help standing or walking: Y Fallen in the last 3 months: N Fall risk comments: WHEEL CHAIR 6. Patient on Blood Thinner: None 7. History of Hypertension: Y 8. Opioid Therapy greater than 6 weeks: N Opiate Contract Signed: 06/06/18 9. Risk Assessment Tool Provided: LOW 10. Functional Assessment Tool: 11. Recreational Drug Use: Never Drug Type: Tobacco Use: Never Smoker Tobacco Type: Amount or Packs/day: How Many Years: Alcohol Use: No Frequency: Quant:
== END ==
LOC: PAIN 07:39
PROVIDERS: ATTEND Anesthesiology Pain Medicine
DX: G89.4 Chronic pain syndrome (principal); I10 Essential (primary) hypertension; Z79.891 Long term (current) use of opiate analgesic; Z79.899 Other long term (current) drug therapy; Z88.5 Allergy status to narcotic agent; Z88.2 Allergy status to sulfonamides

== ENCOUNTER → 2021-02-10 | Outpatient (CLI) | payer OTHER, MEDICARE ==
[~2021-02-10] MED LIST changes: +ALPRAZOLAM 0.50.5 MG PO; -OZEMPIC0.25 MG/0.; +OZEMPIC0.25 MG/0. SQ
== END ==
LOC: TELEPC 06:46 → PAIN 06:46
PROVIDERS: ATTEND Clinical Nurse Specialist Adult Health
DX: G89.4 Chronic pain syndrome (principal); G54.6 Phantom limb syndrome with pain; F41.8 Other specified anxiety disorders; F11.20 Opioid dependence, uncomplicated; Z88.8 Allergy status to other drugs, medicaments and biological substances; Z79.84 Long term (current) use of oral hypoglycemic drugs; Z79.82 Long term (current) use of aspirin; Z79.899 Other long term (current) drug therapy

== ENCOUNTER → 2021-03-10 | Outpatient (CLI) | payer OTHER, MEDICARE ==
[~2021-03-10] VITALS: Ht 175.3 cm; Wt 64.6 kg
[2021-03-10 08:39] VITALS: BP 153/99
--- NOTE | 2021-03-10 09:00 | NUR ---
Pain Clinic Assessment: 1. History of Osteoarthritis: neck, shoulders, back and rt ankle, RIGHT KNEE History of Rheumatoid Arthritis: Not Applicable 2. Height: 5 ft. 9 in. 175.3 cm. Weight: 142.4 lb. oz. 64.592 kg. Patient's BMI: 21.0 3. Vital Signs: BP: 153/99 Pulse: 83 Resp: 14 Temp: 02 Sat: 100 ECG Mon: 4. Pain Intensity: 6 5. Fall Risk: Dizziness: Y Needs help standing or walking: Y Fallen in the last 3 months: Y Fall risk comments: WHEEL CHAIR 6. Patient on Blood Thinner: None 7. History of Hypertension: Y 8. Opioid Therapy greater than 6 weeks: N Opiate Contract Signed: 06/06/18 9. Risk Assessment Tool Provided: LOW 10. Functional Assessment Tool: 11. Recreational Drug Use: Never Drug Type: Tobacco Use: Never Smoker Tobacco Type: Amount or Packs/day: How Many Years: Alcohol Use: No Frequency: Quant:
== END ==
LOC: PAIN 08:06
PROVIDERS: ATTEND Clinical Nurse Specialist Adult Health
DX: G89.29 Other chronic pain (principal); M54.50 Low back pain, unspecified; G54.7 Phantom limb syndrome without pain; F34.9 Persistent mood [affective] disorder, unspecified; F41.8 Other specified anxiety disorders; Z88.8 Allergy status to other drugs, medicaments and biological substances; Z79.84 Long term (current) use of oral hypoglycemic drugs; Z79.899 Other long term (current) drug therapy